=== PATIENT | male | born 1955 | race Caucasian/White ===

== ENCOUNTER 2017-01-12 06:20 | Day surgery (SDC) | payer BC ==
[2017-01-12] MEDS ORDERED: Lactated Ringers 1,000 ML IV SCH (07:00)
[2017-01-12] MEDS ORDERED: Bupivacaine 0.25%/EPINEPHrine 1:200,000 10 ML SDV INJECT ONE (07:00)
--- NOTE | 2017-01-12 07:01 | PCM.PREANE ---
Preanesthetic Assessment - Anesthesia/Transfusion/Family Hx Anesthesia History: Prior Anesthesia Without Reaction Family History of Anesthesia Reaction: No Transfusion History: No Prior Transfusion(s) Intubation History: Unknown - Review of Systems General: No Symptoms Pulmonary: No Symptoms Cardiovascular: No Symptoms Gastrointestinal: No Symptoms Neurological: No Symptoms Other: Reports: None - Physical Assessment O2 Sat by Pulse Oximetry: 95 Respiratory Rate: 16 Vital Signs: Last Vital Signs Temp 36.1 C 01/12/17 06:27 Pulse 66 01/12/17 06:27 Resp 16 01/12/17 06:27 BP 115/65 01/12/17 06:27 Pulse Ox 95 01/12/17 06:27 Height: 1.91 m Weight: 111.13 kg ASA Class: 3 Mental Status: Alert & Oriented x3 Airway Class: Mallampati = 2 Dentition: Reports: Normal Dentition Thyro-Mental Finger Breadths: 3 Mouth Opening Finger Breadths: 3 ROM/Head Extension: Full Lungs: Clear to Auscultation, Normal Respiratory Effort Cardiovascular: Regular Rate, Regular Rhythm - Allergies Allergies/Adverse Reactions: Allergies Allergy/AdvReac Type Severity Reaction Status Date / Time meperidine HCl [From Demerol] Allergy Anaphylactic Verified 07/13/15 15:03 Shock - Blood Blood Available: No - Anesthesia Plan Pre-Op Medication Ordered: None - Acknowledgements Anesthesia Type Planned: MAC Pt an Appropriate Candidate for the Planned Anesthesia: Yes Alternatives and Risks of Anesthesia Discussed w Pt/Guardian: Yes Pt/Guardian Understands and Agrees with Anesthesia Plan: Yes PreAnesthesia Questionnaire HEENT History: Reports: None Cardiovascular History: Reports: High Cholesterol, Hypertension Respiratory History: Reports: Sleep Apnea Other Respiratory History: uses CPAP Gastrointestinal History: Reports: Colon Polyp, GERD, Other (See Below) Other Gastrointestinal History: hx of Barretts Esophagus, h/o colon polyps, h/o gstric ulcer Genitourinary History: Reports: BPH Musculoskeletal History: Reports: Back Pain, Chronic, Fracture, Gout Other Musculoskeletal History: degenerative discs in neck and back, fx of big toe right foot Neurological History: Reports: None Psychiatric History: Reports: None Endocrine/Metabolic History: Reports: Diabetes, Type II, Obesity/BMI 30+ Hematologic History: Reports: None Immunologic History: Reports: None Oncologic (Cancer) History: Reports: None Dermatologic History: Reports: Psoriasis Other Dermatologic History: on nuckles of thumbs - Past Surgical History Head Surgeries/Procedures: Reports: None HEENT Surgical History: Reports: LASIK, Naso-Sinus Surgery Other HEENT Surgeries/Procedures: Frontal sinus surgery Cardiovascular Surgical History: Reports: None Respiratory Surgical History: Reports: None GI Surgical History: Reports: Appendectomy, Colonoscopy, EGD, Other (See Below) Other GI Surgeries/Procedures: umbilical hernia repair Male Surgical History: Reports: None Endocrine Surgical History: Reports: None Neurological Surgical History: Reports: None Musculoskeletal Surgical History: Reports: None Oncologic Surgical History: Reports: None Dermatological Surgical History: Reports: None - SUBSTANCE USE Smoking Status *Q: Former Smoker Recreational Drug Use History: No - HOME MEDS Home Medications: Home Meds Allopurinol [Zyloprim] 1 tab PO DAILY 07/14/15 [History] Aspirin [Adult Low Dose Aspirin EC] 1 tab PO DAILY 07/14/15 [History] Empagliflozin [Jardiance] 25 mg PO DAILY 07/14/15 [History] Finasteride 1 tab PO DAILY 07/14/15 [History] Gabapentin [Neurontin] 1 cap PO BID 07/14/15 [History] Losartan Potassium 1 tab PO DAILY 07/14/15 [History] Omeprazole 1 cap PO BID 07/14/15 [History] Testosterone Cypionate [Depo-Testosterone] 1 ml INJECT ASDIRECTED 07/14/15 [ History] Ubidecarenone [Co Q-10] 1 cap PO DAILY 07/14/15 [History] atorvaSTATin Calcium [Atorvastatin Calcium] 1 tab PO BEDTIME 07/14/15 [History] sitaGLIPtin Phos/Metformin HCl [Janumet 50-500 MG] 1 tab PO BID 07/14/15 [ History] Acetaminophen [Tylenol Extra Strength] 2 tab PO ASDIRECTED PRN 01/10/17 [History ] Acyclovir 400 mg PO BID 01/10/17 [History] Dulaglutide [Trulicity] 1 injection SUBCUT ASDIRECTED 01/10/17 [History] Fish Oil/DHA/EPA [Fish Oil 1,200 MG] 1,200 mg PO BID 01/10/17 [History] Ibuprofen 1 tab PO ASDIRECTED PRN 01/10/17 [History] Loteprednol Etabonate [Lotemax] 1 drop EYEBOTH BID 01/10/17 [History] Metoclopramide HCl 1 tab PO QID 01/10/17 [History] Multivitamin [Multivitamins] 1 tab PO DAILY 01/10/17 [History] - CURRENT (IN HOUSE) MEDS Current Meds: Current Medications Hydrocodone Bitart/Acetaminophen ([place] 325-5 Mg) 1 tab PO Q4H PRN PRN Reason: Pain Bupivacaine HCl/Epinephrine Bitart (Marcaine 0.25%/Epinephrine 1:200,000) 20 ml INJECT ONETIME ONE Stop: 01/12/17 07:01 Cefazolin Sodium/Dextrose 2 gm (/ Premix) 50 mls @ 100 mls/hr IV ONETIME ONE Stop: 01/12/17 07:59 Lactated Ringer's (Ringers, Lactated) 1,000 mls @ 125 mls/hr IV ASDIRECTED [facility] Last Admin: 01/12/17 06:32 Dose: 125 mls/hr
[2017-01-12] MEDS ORDERED: Bupivacaine 25%/EPINEPHrine/PF 30 ML ONE (07:19)
[2017-01-12] MEDS ORDERED: Ondansetron 4 MG/2 ML SDV ONE (07:21)
[2017-01-12] MEDS ORDERED: fentaNYL 100 MCG/2 ML SDV ONE ×2 (07:21→07:59)
[2017-01-12] MEDS ORDERED: Midazolam 1 MG/ML 2 ML SDV ONE (07:21)
[2017-01-12] MEDS ORDERED: Propofol 200 MG/20 ML SDV ONE (07:21)
[2017-01-12] MEDS ORDERED: Acetaminophen/HYDROcodone 325-5 MG Tab PO PRN (07:30)
[2017-01-12] MEDS ORDERED: ceFAZolin 2 GM in Premix Bag 1 BAG IV ONE (07:30)
[2017-01-12] MEDS ORDERED: ePHEDrine 50 MG/ML SDV ONE (08:01)
[2017-01-12] MEDS ORDERED: Ketorolac 30 MG/ML SDV ONE (08:14)
[2017-01-12] MEDS ORDERED: fentaNYL 100 MCG/2 ML SDV IVPUSH PRN (08:17)
[2017-01-12 09:22] VITALS: BP 123/74
--- NOTE | 2017-01-12 12:24 | PCM.OPNOTE ---
- General Post-Op/Procedure Note Date of Surgery/Procedure: 01/12/17 Operative Procedure(s): left carpal and cubital tunnel releases Pre Op Diagnosis: left carpal tunnel and cubital tunnel syndrome Anesthesia Technique: General LMA, Local Primary Surgeon: Rachel Parish Masking Machine Operator: Concepcion Cartwright Complications: None Condition: Good Free Text/Narrative:: Intake & Output 01/11/17 01/12/17 01/12/17 23:59 07:59 15:59 Intake Total 1650 Balance 1650 [id number]
--- NOTE | 2017-01-12 18:26 | OR ---
SURGEON: MILLER HEWITT MD DATE OF PROCEDURE: 01/12/2017 PREOPERATIVE DIAGNOSES: Left cubital tunnel and left carpal tunnel syndrome. POSTOPERATIVE DIAGNOSES: Left cubital tunnel and left carpal tunnel syndrome. PROCEDURES: Left cubital tunnel release and left carpal tunnel release. WINE STEWARD: IDRIS Foote. ANESTHESIA: General LMA with local. INDICATIONS: The patient is seen today in evaluation for left cubital and carpal tunnel syndrome. Risks and benefits of release were discussed with him and he was in agreement to proceed. Risks were including, but not limited to, bleeding, infection, damage to underlying or overlying structures, possible need for future interventions, and possible scarring. PROCEDURE IN DETAIL: After informed consent was obtained and placed on the chart, the patient was brought to the operating theater and laid in supine position. After adequate general LMA and local anesthesia was obtained, the area was prepped and draped. A time-out was completed to confirm side and site. Once adequately confirmed, attention was then paid to dissection of the transverse carpal ligament. The arm was exsanguinated and the tourniquet was inflated to 200 mmHg. Once adequately done, attention was then paid to time-out to confirm side and site. Once this was completed, dissection over the transverse carpal ligament was completed using a #15 blade and Luis Enrique retractors. Under direct visualization, the ligament was reached and dissection was carried distally and proximally under direct visualization for complete release of ligament. Once adequately released, wound was irrigated and closed using 5-0 and 4-0 nylon stitches in a horizontal mattress fashion. The wound was dressed with Xeroform fluffs and a Kerlix gauze dressing, and a 2 inch Kishan wrap. Attention was then paid to the cubital area and the incision was made over the ulnar aspect of the arm. Dissection was carried through the skin and subcutaneous tissues first using a #15 blade and then scissor dissection through the subcutaneous tissues. The nerve was directly visualized at its portion just prior to entering the cubital tunnel. Once this was localized, dissection was carried proximally up into the upper arm and the brachial fascia was released. Any tethering structures were freed taking care for meticulous hemostasis. The nerve was appreciated to be freed by placing my small finger into the tunnel. There was no tension or tethering structures. Attention was then paid to distal dissection and this was done under direct visualization until free mobility of the nerve was appreciated. Dissection was carried through the cubital tunnel and then distally through the flexor carpi ulnaris two heads. Once this was completed, the tourniquet was desufflated and meticulous hemostasis was obtained. Once adequate hemostasis, the area was copiously irrigated and closed using deep 3-0 Monocryl stitches and a running 4- 0 subcuticular for the skin. Once completed, attention was then paid to Steri- Strips for dressings, fluffs, Kerlix, and 4-inch Kishan wrap. He tolerated this well. All counts and needles were correct at the end of the case. FOLLOWUP INSTRUCTIONS: The patient will see us in 10 to 14 days or sooner if any problems, questions, or concerns. He was given a prescription for pain control. SHAHEED / JUAN /[id number]
== END 2017-01-12 10:10 | disposition home or self-care (01) ==
LOC: MW.SDS 06:20
PROVIDERS: ATTEND Plastic Surgery
DX: G56.02 Carpal tunnel syndrome, left upper limb (principal); G56.22 Lesion of ulnar nerve, left upper limb; I10 Essential (primary) hypertension; E78.00 Pure hypercholesterolemia, unspecified; G47.30 Sleep apnea, unspecified; K21.9 Gastro-esophageal reflux disease without esophagitis; E11.9 Type 2 diabetes mellitus without complications; E66.9 Obesity, unspecified; N40.0 Benign prostatic hyperplasia without lower urinary tract symptoms; Z98.890 Other specified postprocedural states; Z88.8 Allergy status to other drugs, medicaments and biological substances; Z90.49 Acquired absence of other specified parts of digestive tract; Z87.891 Personal history of nicotine dependence; Z79.82 Long term (current) use of aspirin; Z79.899 Other long term (current) drug therapy; Z68.30 Body mass index [BMI] 30.0-30.9, adult
CPT/HCPCS: 64718; 64721; J1885; J2250; J2405; J3010; J7120; 01810; J2704

== ENCOUNTER 2020-05-07 09:56 | Inpatient (IN) | payer BC, OTHER ==
--- NOTE | 2020-05-07 10:03 | EDM.PDOC ---
ED HPI GENERAL MEDICAL PROBLEM - General Chief Complaint: Respiratory Problem Stated Complaint: COVID, DIFFICULTY BREATHING, COUGH Time Seen by Provider: 05/07/20 09:58 Source of Information: Reports: Patient History Limitations: Reports: No Limitations - History of Present Illness INITIAL COMMENTS - FREE TEXT/NARRATIVE: HISTORY AND PHYSICAL: History of present illness: Patient is a 64-year-old male who presents to the emergency room with complaints of cough and shortness of breath. Patient states he tested positive for COVID- 19 on 05/01/20, was diagnosed at [facility]. After his diagnoses he was prescribed Augmentin. He continued to feel unwell and his primary care provider at [facility] called him in a 10 day course of 500mg Azithromycin and 6mg BID of Decadron. He states he continues to feel very short of breath and is concerned his oxygen saturation is low. Patient denies any fever, chills, headache, change in vision, syncope or near syncope. Denies any chest pain, back pain, or hemoptysis. Denies any abdominal pain, nausea, vomiting, diarrhea, constipation or dysuria. Has not noted any blood in urine or stool. Patient has been eating and drinking appropriately. Review of systems: As per history of present illness and below otherwise all systems reviewed and negative. Past medical history: As per history of present illness and as reviewed below otherwise noncontributory. Surgical history: As per history of present illness and as reviewed below otherwise noncontributory. Social history: See social history for further information Family history: As per history of present illness and as reviewed below otherwise noncontributory. Physical exam: General: Well developed and well nourished 64 year old female. Alert and orientated x 3. Nontoxic in appearance and in no acute distress. Vital signs are stable and have been reviewed by me. Nursing notes were reviewed. HEENT: Atraumatic, normocephalic, pupils equal and reactive bilaterally, negative for conjunctival pallor or scleral icterus, mucous membranes moist, neck supple, nontender, trachea midline. No drooling or trismus noted. No meningeal signs. No hot potato voice noted. Lungs: Diminished to auscultation bilaterally. No wheezes, rales, or rhonchi. Chest nontender. Normal work of breathing, no accessory muscles used. Heart: S1S2, regular rate and rhythm without overt murmur, gallops, or rubs. No JVD. No peripheral edema Abdomen: Soft, nondistended, nontender. Normoactive bowel sounds. Negative for masses or costovertebral tenderness. Pelvis: Stable nontender. Genitourinary/Rectal: Deferred. Skin: Intact, warm, dry. No lesions or rashes noted. Hematologic: No petechiae or purpra. Mucosa appropriate color and normal nail bed color and refill. Extremities: Atraumatic, moves all extremities per self without difficulty or deficits, negative for cords or calf pain. Neurovascular unremarkable. Neuro: Awake, alert, oriented. Cranial nerves II through XII unremarkable. Cerebellum unremarkable. Motor and sensory unremarkable throughout. Exam nonfocal. Psychiatric: Mood and affect are appropriate. Normal thought process. Answering questions appropriately. Notes: *This patient was seen and evaluated during the 2019 SARS-CoV-2 novel coronavirus pandemic period. Community viral transmission is ongoing at time of this encounter and the emergency department is operating under pandemic response procedures. I have talked with the patient about today's findings, in addition to providing specific details for plan of care. Patient's chest x-ray shows bilateral lung infiltrates related to COVID-19 pneumonia. EKG shows a sinus rhythm with a rate of 81. Vital signs remained stable although he has been on 2 L per nasal cannula satting 92 to 94%. Patient will be admitted for further care and treatment. Dr. Alarcon was consulted on this case and is agreeable. I did review the remdesivir patient information sheet, he is agreeable. Diagnostics: CBC, CMP, COVID-19, Troponin, EKG, CXR Therapeutics: Remdesivr 200mg Impression: COVID-19 positive test (U07.1, COVID-19) with Acute Pneumonia (J12.89, Other viral pneumonia) (If respiratory failure or sepsis present, add as separate assessment) Plan: Inpatient admission to [facility] Definitive disposition and diagnosis as appropriate pending reevaluation and review of above. - Related Data Allergies Allergy/AdvReac Type Severity Reaction Status Date / Time meperidine HCl [From Demerol] Allergy Anaphylactic Verified 05/07/20 09:59 Shock Home Meds: Home Meds Allopurinol [Zyloprim] 1 tab PO DAILY 07/14/15 [History] Aspirin [Adult Low Dose Aspirin EC] 1 tab PO DAILY 07/14/15 [History] Empagliflozin [Jardiance] 25 mg PO DAILY 07/14/15 [History] Finasteride 1 tab PO DAILY 07/14/15 [History] Gabapentin [Neurontin] 1 cap PO BID 07/14/15 [History] Losartan Potassium 1 tab PO DAILY 07/14/15 [History] Omeprazole 1 cap PO BID 07/14/15 [History] Testosterone Cypionate [Depo-Testosterone] 1 ml INJECT ASDIRECTED 07/14/15 [History] Ubidecarenone [Co Q-10] 1 cap PO DAILY 07/14/15 [History] atorvaSTATin Calcium [Atorvastatin Calcium] 1 tab PO BEDTIME 07/14/15 [History] sitaGLIPtin Phos/Metformin HCl [Janumet 50-500 MG] 1 tab PO BID 07/14/15 [History] Acetaminophen [Tylenol Extra Strength] 2 tab PO ASDIRECTED PRN 01/10/17 [History] Acyclovir 400 mg PO BID 01/10/17 [History] Dulaglutide [Trulicity] 1 injection SUBCUT ASDIRECTED 01/10/17 [History] Fish Oil/DHA/EPA [Fish Oil 1,200 MG] 1,200 mg PO BID 01/10/17 [History] Ibuprofen 1 tab PO ASDIRECTED PRN 01/10/17 [History] Loteprednol Etabonate [Lotemax] 1 drop EYEBOTH BID 01/10/17 [History] Metoclopramide HCl 1 tab PO QID 01/10/17 [History] Multivitamin [Multivitamins] 1 tab PO DAILY 01/10/17 [History] Acetaminophen/HYDROcodone [[place] 325-5 MG] 1 tab PO Q4H PRN #740 tablet 01/12/17 [Rx] Past Medical History HEENT History: Reports: None Cardiovascular History: Reports: High Cholesterol, Hypertension Respiratory History: Reports: Sleep Apnea Other Respiratory History: uses CPAP Gastrointestinal History: Reports: Colon Polyp, GERD, Other (See Below) Other Gastrointestinal History: hx of Barretts Esophagus, h/o colon polyps, h/o gstric ulcer Genitourinary History: Reports: BPH Musculoskeletal History: Reports: Back Pain, Chronic, Fracture, Gout, Neck Pain, Chronic Other Musculoskeletal History: degenerative discs in neck and back, fx of big toe right foot Neurological History: Reports: None Psychiatric History: Reports: None Endocrine/Metabolic History: Reports: Diabetes, Type II, Obesity/BMI 30+ Hematologic History: Reports: None Immunologic History: Reports: None Oncologic (Cancer) History: Reports: None Dermatologic History: Reports: Psoriasis Other Dermatologic History: on nuckles of thumbs - Past Surgical History Head Surgeries/Procedures: Reports: None HEENT Surgical History: Reports: LASIK, Naso-Sinus Surgery Other HEENT Surgeries/Procedures: Frontal sinus surgery Cardiovascular Surgical History: Reports: None Respiratory Surgical History: Reports: None GI Surgical History: Reports: Appendectomy, Colonoscopy, EGD, Other (See Below) Other GI Surgeries/Procedures: umbilical hernia repair Male Surgical History: Reports: None Endocrine Surgical History: Reports: None Neurological Surgical History: Reports: None Musculoskeletal Surgical History: Reports: None Oncologic Surgical History: Reports: None Dermatological Surgical History: Reports: None ED ROS GENERAL - Review of Systems Review Of Systems: Comprehensive ROS is negative, except as noted in HPI. ED EXAM, GENERAL - Physical Exam Exam: See Below (See dictation) Course - Vital Signs Last Recorded V/S: Last Vital Signs Temp 99.0 F 05/07/20 09:59 Pulse 99 05/07/20 11:23 Resp 18 05/07/20 11:23 BP 115/81 05/07/20 11:23 Pulse Ox 96 05/07/20 11:23 - Orders/Labs/Meds Orders: Active Orders 24 hr Category Date Time Status Admission Status [Patient Status] [ADT] Stat ADT 05/07/20 11:36 Ordered EKG Documentation Completion [RC] STAT Care 05/07/20 10:13 Active Oxygen Therapy [RC] ASDIRECTED Care 05/07/20 10:13 Active BILIRUBIN DIRECT [CHEM] Stat Lab 05/07/20 11:32 Ordered Sodium Chloride 0.9% [Saline Flush] Med 05/07/20 10:13 Active 10 ml FLUSH ASDIRECTED PRN Sodium Chloride 0.9% [Saline Flush] Med 05/07/20 10:13 Active 2.5 ml FLUSH ASDIRECTED PRN Saline Lock Insert [OM.PC] Stat Oth 05/07/20 10:13 Ordered Medication Orders Sodium Chloride (Saline Flush) 10 ml FLUSH ASDIRECTED PRN PRN Reason: Keep Vein Open Last Admin: 05/07/20 11:21 Dose: 10 ml Documented by: WILLIAM Sodium Chloride (Saline Flush) 2.5 ml FLUSH ASDIRECTED PRN PRN Reason: Keep Vein Open Last Admin: 05/07/20 11:21 Dose: 2.5 ml Documented by: WILLIAM Labs: Laboratory Tests 05/07/20 05/07/20 05/07/20 Range/Units 10:23 10:23 10:34 WBC 10.45 (4.0-11.0) K/uL RBC 5.59 (4.50-5.90) M/uL Hgb 15.2 (13.0-17.0) g/dL Hct 45.8 (38.0-50.0) % MCV 81.9 (80.0-98.0) fL MCH 27.2 (27.0-32.0) pg MCHC 33.2 (31.0-37.0) g/dL RDW Std Deviation 50.7 (28.0-62.0) fl RDW Coeff of Sayra 17 H (11.0-15.0) % Plt Count 188 (150-400) K/uL MPV 9.30 (7.40-12.00) fL Neut % (Auto) 88.4 H (48.0-80.0) % Lymph % (Auto) 6.0 L (16.0-40.0) % Elliott % (Auto) 5.6 (0.0-15.0) % Eos % (Auto) 0.0 (0.0-7.0) % Baso % (Auto) 0.0 (0.0-1.5) % Neut # (Auto) 9.2 H (1.4-5.7) K/uL Lymph # (Auto) 0.6 (0.6-2.4) K/uL Elliott # (Auto) 0.6 (0.0-0.8) K/uL Eos # (Auto) 0.0 (0.0-0.7) K/uL Baso # (Auto) 0.0 (0.0-0.1) K/uL Nucleated RBC % 0.0 /100WBC Nucleated RBCs # 0 K/uL Sodium 139 (136-148) mmol/L Potassium 4.1 (3.5-5.1) mmol/L Chloride 102 (98-107) mmol/L Carbon Dioxide 23.2 (21.0-32.0) mmol/L BUN 26 H (7.0-18.0) mg/dL Creatinine 1.3 (0.8-1.3) mg/dL Est Cr Clr Drug Dosing 70.42 mL/min Estimated GFR (MDRD) 55.9 ml/min Glucose 276 H (74-106) mg/dL Calcium 8.9 (8.5-10.1) mg/dL Total Bilirubin 0.4 (0.2-1.0) mg/dL AST 20 (15-37) IU/L ALT 26 (14-63) IU/L Alkaline Phosphatase 70 (46-116) U/L Troponin I < 0.050 (0.000-0.056) ng/mL Total Protein 8.2 (6.4-8.2) g/dL Albumin 3.5 (3.4-5.0) g/dL Globulin 4.7 H (2.6-4.0) g/dL Albumin/Globulin Ratio 0.7 L (0.9-1.6) SARS-CoV-2 RNA (ARNAUD) POSITIVE H (NEGATIVE) Meds: Medications Generic Name Dose Route Start Last Admin Trade Name Freq PRN Reason Stop Dose Admin Sodium Chloride 10 ml 05/07/20 10:13 05/07/20 11:21 Saline Flush FLUSH 10 ml ASDIRECTED PRN Administration Keep Vein Open Sodium Chloride 2.5 ml 05/07/20 10:13 05/07/20 11:21 Saline Flush FLUSH 2.5 ml ASDIRECTED PRN Administration Keep Vein Open Discontinued Medications Generic Name Dose Route Start Last Admin Trade Name Freq PRN Reason Stop Dose Admin Remdesivir 200 mg/ Sodium 250 mls @ 250 mls/hr 05/07/20 11:31 Chloride IV 05/07/20 11:32 ONETIME ONE Departure - Departure Time of Disposition: 11:40 Disposition: Admitted As Inpatient 68 Clinical Impression: Viral pneumonia, COVID-19 - Discharge Information Referrals: Eren Tong MD [Primary Care Provider] - Forms: ED Department Discharge Sepsis Event Note (ED) - Focused Exam Vital Signs: Vital Signs Temp Pulse Resp BP Pulse Ox 05/07/20 11:23 99 18 115/81 96 05/07/20 10:21 92 L 05/07/20 10:20 90 L 05/07/20 09:59 99.0 F 91 18 176/95 H 92 L - My Orders Last 24 Hours: My Active Orders 05/07/20 10:13 EKG Documentation Completion [RC] STAT Oxygen Therapy [RC] ASDIRECTED Sodium Chloride 0.9% [Saline Flush] 10 ml FLUSH ASDIRECTED PRN Sodium Chloride 0.9% [Saline Flush] 2.5 ml FLUSH ASDIRECTED PRN Saline Lock Insert [OM.PC] Stat 05/07/20 11:32 BILIRUBIN DIRECT [CHEM] Stat 05/07/20 11:36 Admission Status [Patient Status] [ADT] Stat - Assessment/Plan Last 24 Hours: My Active Orders 05/07/20 10:13 EKG Documentation Completion [RC] STAT Oxygen Therapy [RC] ASDIRECTED Sodium Chloride 0.9% [Saline Flush] 10 ml FLUSH ASDIRECTED PRN Sodium Chloride 0.9% [Saline Flush] 2.5 ml FLUSH ASDIRECTED PRN Saline Lock Insert [OM.PC] Stat 05/07/20 11:32 BILIRUBIN DIRECT [CHEM] Stat 05/07/20 11:36 Admission Status [Patient Status] [ADT] Stat
[2020-05-07] MEDS ORDERED: Sodium Chloride 0.9% 10 ML Syringe FLUSH PRN (10:13)
[2020-05-07] MEDS ORDERED: Sodium Chloride 0.9% 2.5 ML Syringe FLUSH PRN ×2 (10:13→12:30)
--- NOTE | 2020-05-07 10:45 | PCM.SN.2 ---
- Free Text/Narrative Note: Heart rate = 81 bpm, normal sinus rhythm, normal QRS interval, no STEMI. EKG and rhythm strip interpreted by me at 1037
[2020-05-07 11:04] LABS: BLOOD UREA NITROGEN,BUN 26 mg/dL (7.0-18.0); CARBON DIOXIDE,CO2 23.2 mmol/L (21.0-32.0); CHLORIDE,CL 102 mmol/L (98-107); GLUCOSE RANDOM 276 mg/dL (74-106); POTASSIUM,K 4.1 mmol/L (3.5-5.1); SODIUM,NA 139 mmol/L (136-148)
--- NOTE | 2020-05-07 11:09 | CR ---
HISTORY: Shortness of breath. COVID positive. TECHNIQUE: One view of the chest. COMPARISON: No prior. FINDINGS: There are bilateral lung infiltrates which may relate to COVID-19 pneumonia. There is no pneumothorax or pleural effusion. Cardiac size is within normal limits accounting for the AP portable technique. IMPRESSION: Bilateral lung infiltrates which may relate to COVID-19 pneumonia. Dictated by Chris Gregory MD @ 05/07/2020 11:08:18 AM Dictated by: Chris Gregory MD @ 05/07/2020 11:08:22 (Electronically Signed)
[2020-05-07] MEDS ORDERED: REMDESIVIR 200 MG in Sodium Chloride 0.9% 250 ML IV ONE ×2 (11:31→12:00)
[2020-05-07] MEDS ORDERED: Docusate Sodium 100 MG Cap PO PRN (12:30)
[2020-05-07] MEDS ORDERED: Ondansetron 4 MG/2 ML SDV IVPUSH PRN (12:30)
[2020-05-07] MEDS ORDERED: Pantoprazole 40 MG Vial IV SCH (12:30)
[2020-05-07] MEDS ORDERED: Glucagon,Human Recombinant 1 MG Vial IM PRN (12:36)
[2020-05-07] MEDS ORDERED: 50% Dextrose in Water 50 ML Syringe IV PRN (12:36)
[2020-05-07] MEDS ORDERED: Pantoprazole 40 MG in Sodium Chloride 0.9% 10 ML IV SCH (13:00)
--- NOTE | 2020-05-07 14:30 | PCM.HP.2 ---
H&P History of Present Illness - General Date of Service: 05/07/20 Admit Problem/Dx: Admission Diagnosis/Problem Admission Diagnosis/Problem Pneumonia Source of Information: Patient History Limitations: Reports: No Limitations - History of Present Illness Initial Comments - Free Text/Narative: This 64 year old male with pmh of HTN, HLD, DM Type 2, TON on CPAP, GERD with Barretts presented to the ED today with complaints of cough and shortness of breath. He was diagnosed with COVID on 05/01/2020 of a outside clinic in [facility]. He was given Augmentin. He continued to feel poorly and discussed this with PCP Dr Tong, who sent Azithromycin and Dexamethasone. He has continued to have sob and was concerned his oxygen levels were low. He reports he initially started having symptoms 1-1/2 weeks ago and was then tested on 05/01/2020. Beginning the week is when he received the dexamethasone and azithromycin. He reports he has had fevers highest 101 F. He denies any sinus congestion or sore throat. Reports that taste and smell are slightly affected. He reports significant cough inability to take a deep breath. He is not coughing anything up no hemoptysis and no sputum. He denies any chest pain but does report pleuritic chest pain with significant coughing. Denies any abdominal pain. Does report mild diarrhea but he feels this is likely related to Augmentin he was taking. He reports he is eating and drinking well but also states that he has lost approximately 10 pounds in the course of him being sick. He denies any focal neurological deficits. He denies tobacco use(quit in 1994) no alcohol use and no recreational drug use. In the ED no leukocytosis was noted, platelet 188,000, BUN 26 Cr 1.3. Glucose 276. Troponin negative. CXR revealed bilateral lung infiltrate, typical for COVID pneumonia. EKG SR with HR 80s no ST or T wave changes. He was noted to be hypoxic on RA at 88%. He was placed on 2 L NC and was satting at 92-94%. He was treated with Remdesivir 200 mg IV in ED. He will be admitted inpatient for acute hypoxic respiratory failure and COVID 19 pneumonia. PCP, Dr Tong - Related Data Allergies/Adverse Reactions: Allergies Allergy/AdvReac Type Severity Reaction Status Date / Time meperidine HCl [From Demerol] Allergy Anaphylactic Verified 05/07/20 14:03 Shock Home Medications: Home Meds Allopurinol [Zyloprim] 300 mg PO DAILY 07/14/15 [History] Aspirin [Adult Low Dose Aspirin EC] 1 tab PO DAILY 07/14/15 [History] Empagliflozin [Jardiance] 25 mg PO DAILY 07/14/15 [History] Finasteride 5 mg PO DAILY 07/14/15 [History] Gabapentin [Neurontin] 300 mg PO TID PRN 07/14/15 [History] Losartan Potassium 1 tab PO DAILY 07/14/15 [History] Omeprazole 20 mg PO ACBREAKFASTANDBED 07/14/15 [History] Testosterone Cypionate [Depo-Testosterone] 1 ml IM WEEKLY 07/14/15 [History] Ubidecarenone [Co Q-10] 1 cap PO DAILY 07/14/15 [History] atorvaSTATin Calcium [Atorvastatin Calcium] 1 tab PO BEDTIME 07/14/15 [History] Acetaminophen [Tylenol Extra Strength] 2 tab PO ASDIRECTED PRN 01/10/17 [History] Acyclovir 400 mg PO BID 01/10/17 [History] Dulaglutide [Trulicity] 1.5 mg SUBCUT WEEKLY 01/10/17 [History] Fish Oil/DHA/EPA [Fish Oil 1,200 MG] 1,200 mg PO BID 01/10/17 [History] Ibuprofen 1 tab PO ASDIRECTED PRN 01/10/17 [History] Loteprednol Etabonate [Lotemax] 1 drop EYEBOTH BID 01/10/17 [History] Metoclopramide HCl 1 tab PO QID 01/10/17 [History] Multivitamin [Multivitamins] 1 tab PO DAILY 01/10/17 [History] Acetaminophen/HYDROcodone [[place] 325-5 MG] 1 tab PO Q4H PRN #740 tablet 01/12/17 [Rx] Albuterol Sulfate [Albuterol Sulfate Hfa] 2 puff INH Q4H PRN 05/07/20 [History] Cholecalciferol (Vitamin D3) [Vitamin D3] 1,000 unit PO TID 05/07/20 [History] Fluticasone/Umeclidin/Vilanter [Trelegy Ellipta 100-62.5-25 MCG] 1 puff INH DAILY 05/07/20 [History] Montelukast [Singulair] 10 mg PO QPM 05/07/20 [History] Psyllium Seed (With Sugar) [Metamucil Fiber Wafer] 2 each PO DAILY 05/07/20 [History] Vitamin E 800 unit PO DAILY 05/07/20 [History] sitaGLIPtin Phos/Metformin HCl [Janumet 50-1,000 MG] 1 each PO BID 05/07/20 [History] Past Medical History HEENT History: Reports: None Cardiovascular History: Reports: High Cholesterol, Hypertension. Denies: Afib, Blood Clots/VTE/DVT, CAD Respiratory History: Reports: COPD, Sleep Apnea Other Respiratory History: uses CPAP Gastrointestinal History: Reports: Colon Polyp, GERD, Other (See Below) Other Gastrointestinal History: hx of Barretts Esophagus, h/o colon polyps, h/o gstric ulcer Genitourinary History: Reports: BPH Musculoskeletal History: Reports: Back Pain, Chronic, Fracture, Gout, Neck Pain, Chronic Other Musculoskeletal History: degenerative discs in neck and back, fx of big toe right foot Neurological History: Reports: None Psychiatric History: Reports: None Endocrine/Metabolic History: Reports: Diabetes, Type II, Obesity/BMI 30+ Hematologic History: Reports: None Immunologic History: Reports: None Oncologic (Cancer) History: Reports: None Dermatologic History: Reports: Psoriasis Other Dermatologic History: on nuckles of thumbs - Infectious Disease History Infectious Disease History: Reports: Chicken Pox - Past Surgical History Head Surgeries/Procedures: Reports: None HEENT Surgical History: Reports: LASIK, Naso-Sinus Surgery Other HEENT Surgeries/Procedures: Frontal sinus surgery Cardiovascular Surgical History: Reports: None Respiratory Surgical History: Reports: None GI Surgical History: Reports: Appendectomy, Colonoscopy, EGD, Other (See Below) Other GI Surgeries/Procedures: umbilical hernia repair Male Surgical History: Reports: None Endocrine Surgical History: Reports: None Neurological Surgical History: Reports: None Musculoskeletal Surgical History: Reports: None, Carpal Tunnel Oncologic Surgical History: Reports: None Dermatological Surgical History: Reports: None Social & Family History - Family History Family Medical History: No Pertinent Family History - Tobacco Use Tobacco Use Status *Q: Former Tobacco User Used Tobacco, but Quit: Yes Month/Year Tobacco Last Used: 1994 - Caffeine Use Caffeine Use: Reports: Coffee - Alcohol Use Alcohol Use History: No - Recreational Drug Use Recreational Drug Use: No H&P Review of Systems - Review of Systems: Review Of Systems: See Below General: Reports: Fever, Chills, Malaise, Fatigue HEENT: Reports: Post Nasal Drip. Denies: Headaches, Sinus Congestion, Sore Throat Pulmonary: Reports: Shortness of Breath, Pleuritic Chest Pain, Cough. Denies: Sputum, Hemoptysis Cardiovascular: Reports: Dyspnea on Exertion. Denies: Chest Pain, Edema, Lightheadedness Gastrointestinal: Reports: Diarrhea. Denies: Abdominal Pain, Black Stool, Bloody Stool, Nausea, Vomiting Genitourinary: Reports: No Symptoms, Pain, Urgency. Denies: Dysuria, Frequency Musculoskeletal: Reports: No Symptoms Psychiatric: Reports: No Symptoms Neurological: Reports: No Symptoms Hematologic/Lymphatic: Reports: No Symptoms Immunologic: Reports: No Symptoms Exam - Exam Exam: See Below - Vital Signs Vital Signs: Last Vital Signs Temp 97.4 F 05/07/20 13:30 Pulse 79 05/07/20 13:30 Resp 20 05/07/20 13:30 BP 138/70 05/07/20 13:30 Pulse Ox 92 L 05/07/20 13:30 Weight: 99.79 kg - Exam General: Alert, Oriented, Cooperative HEENT: Conjunctiva Clear Neck: Supple Lungs: Decreased Breath Sounds, Crackles (R basilar) Cardiovascular: Regular Rate, Regular Rhythm GI/Abdominal Exam: Normal Bowel Sounds, Soft, Non-Tender Extremities: Normal Inspection, Normal Range of Motion, Non-Tender, No Pedal Edema Skin: Warm, Dry Neuro Extensive - Mental Status: Alert, Oriented x3 Neuro Extensive - Motor, Sensory, Reflexes: CN II-XII Intact Psychiatric: Alert, Normal Affect, Normal Mood - Patient Data Lab Results Last 24 hrs: Laboratory Results - last 24 hr 05/07/20 05/07/20 05/07/20 Range/Units 10:23 10:23 10:23 WBC 10.45 (4.0-11.0) K/uL RBC 5.59 (4.50-5.90) M/uL Hgb 15.2 (13.0-17.0) g/dL Hct 45.8 (38.0-50.0) % MCV 81.9 (80.0-98.0) fL MCH 27.2 (27.0-32.0) pg MCHC 33.2 (31.0-37.0) g/dL RDW Std Deviation 50.7 (28.0-62.0) fl RDW Coeff of Sayra 17 H (11.0-15.0) % Plt Count 188 (150-400) K/uL MPV 9.30 (7.40-12.00) fL Neut % (Auto) 88.4 H (48.0-80.0) % Lymph % (Auto) 6.0 L (16.0-40.0) % Gaines % (Auto) 5.6 (0.0-15.0) % Eos % (Auto) 0.0 (0.0-7.0) % Baso % (Auto) 0.0 (0.0-1.5) % Neut # (Auto) 9.2 H (1.4-5.7) K/uL Lymph # (Auto) 0.6 (0.6-2.4) K/uL Gaines # (Auto) 0.6 (0.0-0.8) K/uL Eos # (Auto) 0.0 (0.0-0.7) K/uL Baso # (Auto) 0.0 (0.0-0.1) K/uL Nucleated RBC % 0.0 /100WBC Nucleated RBCs # 0 K/uL Sodium 139 (136-148) mmol/L Potassium 4.1 (3.5-5.1) mmol/L Chloride 102 (98-107) mmol/L Carbon Dioxide 23.2 (21.0-32.0) mmol/L BUN 26 H (7.0-18.0) mg/dL Creatinine 1.3 (0.8-1.3) mg/dL Est Cr Clr Drug Dosing 70.42 mL/min Estimated GFR (MDRD) 55.9 ml/min Glucose 276 H (74-106) mg/dL Calcium 8.9 (8.5-10.1) mg/dL Total Bilirubin 0.4 (0.2-1.0) mg/dL Direct Bilirubin 0.10 (0.0-0.5) mg/dL AST 20 (15-37) IU/L ALT 26 (14-63) IU/L Alkaline Phosphatase 70 (46-116) U/L Troponin I < 0.050 (0.000-0.056) ng/mL Total Protein 8.2 (6.4-8.2) g/dL Albumin 3.5 (3.4-5.0) g/dL Globulin 4.7 H (2.6-4.0) g/dL Albumin/Globulin Ratio 0.7 L (0.9-1.6) SARS-CoV-2 RNA (ARNAUD) (NEGATIVE) 05/07/20 Range/Units 10:34 WBC (4.0-11.0) K/uL RBC (4.50-5.90) M/uL Hgb (13.0-17.0) g/dL Hct (38.0-50.0) % MCV (80.0-98.0) fL MCH (27.0-32.0) pg MCHC (31.0-37.0) g/dL RDW Std Deviation (28.0-62.0) fl RDW Coeff of Sayra (11.0-15.0) % Plt Count (150-400) K/uL MPV (7.40-12.00) fL Neut % (Auto) (48.0-80.0) % Lymph % (Auto) (16.0-40.0) % Gaines % (Auto) (0.0-15.0) % Eos % (Auto) (0.0-7.0) % Baso % (Auto) (0.0-1.5) % Neut # (Auto) (1.4-5.7) K/uL Lymph # (Auto) (0.6-2.4) K/uL Gaines # (Auto) (0.0-0.8) K/uL Eos # (Auto) (0.0-0.7) K/uL Baso # (Auto) (0.0-0.1) K/uL Nucleated RBC % /100WBC Nucleated RBCs # K/uL Sodium (136-148) mmol/L Potassium (3.5-5.1) mmol/L Chloride (98-107) mmol/L Carbon Dioxide (21.0-32.0) mmol/L BUN (7.0-18.0) mg/dL Creatinine (0.8-1.3) mg/dL Est Cr Clr Drug Dosing mL/min Estimated GFR (MDRD) ml/min Glucose (74-106) mg/dL Calcium (8.5-10.1) mg/dL Total Bilirubin (0.2-1.0) mg/dL Direct Bilirubin (0.0-0.5) mg/dL AST (15-37) IU/L ALT (14-63) IU/L Alkaline Phosphatase (46-116) U/L Troponin I (0.000-0.056) ng/mL Total Protein (6.4-8.2) g/dL Albumin (3.4-5.0) g/dL Globulin (2.6-4.0) g/dL Albumin/Globulin Ratio (0.9-1.6) SARS-CoV-2 RNA (ARNAUD) POSITIVE H (NEGATIVE) Result Diagrams: 05/07/20 10:23 05/07/20 10:23 Sepsis Event Note - Evaluation Sepsis Screening Result: No Definite Risk - Focused Exam Vital Signs: Vital Signs Temp Pulse Resp BP BP Pulse Ox Pulse Ox 05/07/20 13:30 97.4 F 79 20 138/70 92 L 92 L 05/07/20 11:23 99 18 115/81 96 05/07/20 10:21 92 L 05/07/20 10:20 90 L 05/07/20 09:59 99.0 F 91 18 176/95 H 92 L - Problem List (1) Acute respiratory failure with hypoxia SNOMED Code(s): 89697629, 534607401 ICD Code: J96.01 - ACUTE RESPIRATORY FAILURE WITH HYPOXIA Status: Acute Current Visit: Yes (2) COVID-19 SNOMED Code(s): 468650474 ICD Code: U07.1 - COVID-19 Status: Acute Current Visit: Yes (3) Viral pneumonia SNOMED Code(s): 68365048 ICD Code: J12.9 - VIRAL PNEUMONIA, UNSPECIFIED Status: Acute Current Visit: Yes (4) DM type 2 (diabetes mellitus, type 2) SNOMED Code(s): 30799036 ICD Code: E11.9 - TYPE 2 DIABETES MELLITUS WITHOUT COMPLICATIONS Status: Chronic Current Visit: Yes Qualifiers: Diabetes mellitus senior living insulin use: without senior living use Diabetes mellitus complication status: without complication Qualified Code(s): E11.9 - Type 2 diabetes mellitus without complications (5) HTN (hypertension) SNOMED Code(s): 97528467 ICD Code: I10 - ESSENTIAL (PRIMARY) HYPERTENSION Status: Chronic Current Visit: Yes Qualifiers: Hypertension type: essential hypertension Qualified Code(s): I10 - Essen tial (primary) hypertension (6) HLD (hyperlipidemia) SNOMED Code(s): 63227954 ICD Code: E78.5 - HYPERLIPIDEMIA, UNSPECIFIED Status: Chronic Current Visit: Yes (7) GERD (gastroesophageal reflux disease) SNOMED Code(s): 375556528 ICD Code: K21.9 - GASTRO-ESOPHAGEAL REFLUX DISEASE WITHOUT ESOPHAGITIS Status: Chronic Current Visit: Yes (8) TON (obstructive sleep apnea) SNOMED Code(s): 88962296 ICD Code: G47.33 - OBSTRUCTIVE SLEEP APNEA (ADULT) (PEDIATRIC) Status: Chronic Current Visit: Yes (9) COPD (chronic obstructive pulmonary disease) SNOMED Code(s): 56630674 ICD Code: J44.9 - CHRONIC OBSTRUCTIVE PULMONARY DISEASE, UNSPECIFIED Status: Chronic Current Visit: Yes Problem List Initiated/Reviewed/Updated: Yes Orders Last 24hrs: Active Orders 24 hr Category Date Time Status Admission Status [Patient Status] [ADT] Stat ADT 05/07/20 11:36 Active Ambulate [RC] ASDIRECTED Care 05/07/20 12:30 Active Blood Glucose Check, Bedside [RC] TIDMEALS Care 05/07/20 12:30 Active Communication Order [RC] ROUTINE Care 05/07/20 14:22 Ordered Intake and Output [RC] Q12H Care 05/07/20 12:30 Active Oxygen Therapy [RC] ASDIRECTED Care 05/07/20 10:13 Active Oxygen Therapy [RC] PRN Care 05/07/20 12:30 Active RT Incentive Spirometry [RC] Q1HWA Care 05/07/20 14:22 Ordered RT Post Treatment Assessment [RC] Click to Edit Care 05/07/20 12:34 Active RT Pre-Treatment Assessment [RC] Click to Edit Care 05/07/20 12:34 Active VTE/DVT Education [RC] PER UNIT ROUTINE Care 05/07/20 12:30 Active Vital Signs [RC] Q4H Care 05/07/20 12:30 Active Respiratory Care Assess and Treatment [CONS] Routine Cons 05/07/20 12:30 Active [employer] Diet [DIET] Diet 05/07/20 Lunch Active Ang Chest [CT] Urgent Exams 05/07/20 14:16 Ordered CBC WITH AUTO DIFF [HEME] AM Lab 05/08/20 05:11 Ordered CBC WITH AUTO DIFF [HEME] AM Lab 05/09/20 05:11 Ordered CBC WITH AUTO DIFF [HEME] AM Lab 05/10/20 05:11 Ordered CBC WITH AUTO DIFF [HEME] AM Lab 05/11/20 05:11 Ordered CBC WITH AUTO DIFF [HEME] AM Lab 05/12/20 05:11 Ordered COMPREHENSIVE METABOLIC PN,CMP [CHEM] AM Lab 05/08/20 05:11 Ordered COMPREHENSIVE METABOLIC PN,CMP [CHEM] AM Lab 05/09/20 05:11 Ordered COMPREHENSIVE METABOLIC PN,CMP [CHEM] AM Lab 05/10/20 05:11 Ordered COMPREHENSIVE METABOLIC PN,CMP [CHEM] AM Lab 05/11/20 05:11 Ordered COMPREHENSIVE METABOLIC PN,CMP [CHEM] AM Lab 05/12/20 05:11 Ordered MAGNESIUM [CHEM] AM Lab 05/08/20 05:11 Ordered MAGNESIUM [CHEM] AM Lab 05/09/20 05:11 Ordered MAGNESIUM [CHEM] AM Lab 05/10/20 05:11 Ordered MAGNESIUM [CHEM] AM Lab 05/11/20 05:11 Ordered MAGNESIUM [CHEM] AM Lab 05/12/20 05:11 Ordered Acetaminophen [TylenoL] Med 05/07/20 12:30 Active 650 mg PO Q4H PRN Albuterol/Ipratropium [Combivent Respimat] Med 05/07/20 18:00 Active See Dose Instructions INH QID Benzonatate [Tessalon Perles] Med 05/07/20 14:17 Ordered 200 mg PO TID PRN Codeine/guaiFENesin [Robitussin AC] Med 05/07/20 14:21 Ordered 5 ml PO Q6H PRN Dextrose 50% in Water Med 05/07/20 12:36 Active 50 ml IV ASDIRECTED PRN Docusate Sodium [Colace] Med 05/07/20 12:30 Active 100 mg PO BID PRN Enoxaparin [Lovenox] Med 05/07/20 13:00 Active 40 mg SUBCUT Q24H Finasteride [Proscar] Med 05/08/20 09:00 Ordered 5 mg PO DAILY Fluticasone/Umeclidin/Vilanter [Trelegy Ellipta 100-62. Med 05/08/20 09:00 Ordered 5-25 MCG] 1 puff INH DAILY Glucagon,Human Recombinant [GlucaGen] Med 05/07/20 12:36 Active 1 mg IM ASDIRECTED PRN Insulin Aspart [NovoLOG] Med 05/07/20 17:00 Active See Protocol SUBCUT TIDAC Omeprazole Med 05/07/20 21:00 Ordered 20 mg PO ACBREAKFASTANDBED Ondansetron [Zofran] Med 05/07/20 12:30 Active 4 mg IVPUSH Q4H PRN Remdesivir 100 mg Med 05/08/20 12:00 Ordered Sodium Chloride 0.9% [Normal Saline] 100 ml IV Q24H Sodium Chloride 0.9% [Saline Flush] Med 05/07/20 12:30 Active 2.5 ml FLUSH ASDIRECTED PRN dexAMETHasone Med 05/07/20 14:18 Ordered 6 mg PO DAILY RT Acapella [RESPCARE] Routine Oth 05/07/20 14:22 Ordered Saline Lock Insert [OM.PC] Routine Oth 05/07/20 12:30 Ordered Saline Lock Insert [OM.PC] Stat Oth 05/07/20 10:13 Ordered Resuscitation Status Routine Resus Stat 05/07/20 12:30 Ordered Medication Orders Acetaminophen (Tylenol) 650 mg PO Q4H PRN PRN Reason: Pain (Mild 1-3)/fever Albuterol/Ipratropium (Combivent Respimat) 0 gm INH QID NOBLE Benzonatate (Tessalon Perles) 200 mg PO TID PRN PRN Reason: Cough Dexamethasone (Dexamethasone) 6 mg PO DAILY NOBLE Stop: 05/16/20 09:01 Dextrose/Water (Dextrose 50% In Water) 50 ml IV ASDIRECTED PRN PRN Reason: Hypoglycemia Docusate Sodium (Colace) 100 mg PO BID PRN PRN Reason: Constipation Enoxaparin Sodium (Lovenox) 40 mg SUBCUT Q24H NOBLE Finasteride (Proscar) 5 mg PO DAILY NOBLE Glucagon (Glucagen) 1 mg IM ASDIRECTED PRN PRN Reason: Hypoglycemia Guaifenesin/Codeine Phosphate (Robitussin Ac) 5 ml PO Q6H PRN PRN Reason: Cough Remdesivir 100 mg/ Sodium (Chloride) 100 mls @ 100 mls/hr IV Q24H NOBLE Stop: 05/11/20 12:59 Insulin Aspart (Novolog) 0 unit SUBCUT TIDAC NOBLE; Protocol Non-Formulary Medication (Fluticasone/Umeclidin/Vilanter [Trelegy Ellipta 100-62.5-25 Mcg]) 1 puff INH DAILY NOBLE Omeprazole (Omeprazole) 20 mg PO ACBREAKFASTANDBED NOBLE Ondansetron HCl (Zofran) 4 mg IVPUSH Q4H PRN PRN Reason: Nausea Sodium Chloride (Saline Flush) 2.5 ml FLUSH ASDIRECTED PRN PRN Reason: Keep Vein Open Assessment/Plan Comment:: This 64 year old male admitted with acute hypoxic respiratory failure and COVID 19, viral pneumonia 1.Acute respiratory failure and COVID 19 pneumonia - We will obtain CTA of the chest to rule out PE and secondary bacterial infection due to length of illness. - Continue Oxygen therapy to keep sats >92% - Remdesivir 100 mg IV daily x 4 days - Dexamethasone 6 mg PO daily x 10 days - IS and Acapella - Prone position as much as possible - Combivent inhaler - CPAP with o2 at night for TON - Tessalon pearles and Robitussin PRN cough 2. HTN/HLD -Continue losartan -Monitor blood pressures 3. DM Type 2 - Novlog SSI with TIDAC BS checks - Monitor BS closely with steroid use - Hold PO diabetic medications 4. TON/COPD -Has not been using CPAP recently will hold off on ranitidine at this time. -Takes Trelegy for COPD encouraged to have bring this in. We will continue VTE prophylaxis: Lovenox GI prophylaxis: Omeprazole BID Dispo: 2-3 days pending improvement
[2020-05-07] MEDS: Benzonatate 100 MG Cap PO PRN ×2 (14:35→20:51)
[2020-05-07] MEDS: Enoxaparin 40 MG/0.4 ML Syringe SUBCUT SCH (14:39)
[2020-05-07] MEDS ORDERED: Iopamidol 755 MG/ML 500 ML Multipack Bottle IVPUSH ONE (15:39)
--- NOTE | 2020-05-07 16:09 | CT ---
Indication: Severe hypoxia and bellamy virus infection Technique: Volumetric multidetector CT images of the chest were obtained after the administration of IV contrast. 100 cc Isovue 370 low osmolar intravenous contrast Comparison: Single view chest May 07, 2020 Findings: The thoracic inlet and thyroid gland are unremarkable. The thoracic aorta is nonaneurysmal. There is no central filling defect to suggest pulmonary embolism. Mildly limited evaluation of the peripheral subsegmental arteries due to bolus timing. There is demonstration of reactive mediastinal and hilar adenopathy. The trachea and bronchi are well aerated without significant bronchiectasis. There are extensive ground-glass and airspace opacities seen throughout the bilateral hemithoraces likely representing multifocal infiltrates. There is no evidence of pulmonary mass or suspicious pulmonary nodule. The partially visualized upper abdominal viscera are within normal limits. The thoracic vertebral body heights are grossly maintained with [id number] degenerative disc disease. There is no evidence of significant spondylolisthesis or displaced fracture. Impression: No definite pulmonary embolus, limited exam due to bolus timing. Extensive ground-glass and airspace opacities consistent with atypical viral infiltrate. Please note that all CT scans at this facility use dose modulation, iterative reconstruction, and/or weight-based dosing when appropriate to reduce radiation dose to as low as reasonably achievable. Dictated by Delvin Titus MD @ May 07 2020 4:00PM Signed by Dr. Delvin Titus @ May 07 2020 4:06PM
[2020-05-07] MEDS: Dexamethasone 4 MG Tab PO SCH (17:18)
[2020-05-07] MEDS: Insulin Aspart 100 Units/ML 3 ML Pen SUBCUT SCH (17:21)
[2020-05-07] MEDS: Omeprazole 20 MG Cap.CR PO SCH (20:51)
[2020-05-07] MEDS: Albuterol/Ipratropium 4 GM Inhalation Spray INH SCH (21:31)
[2020-05-07] MEDS: Acetaminophen 325 MG Tab PO PRN (21:34)
[2020-05-07] MEDS: Codeine/guaiFENesin 10-100 MG/5 ML Syrup 5 ML Cup PO PRN (21:35)
[2020-05-08] MEDS: Albuterol/Ipratropium 4 GM Inhalation Spray INH SCH ×5 (00:29→23:02)
[2020-05-08] MEDS: Codeine/guaiFENesin 10-100 MG/5 ML Syrup 5 ML Cup PO PRN ×3 (04:09→23:03)
[2020-05-08 06:51] LABS: BLOOD UREA NITROGEN,BUN 25 mg/dL (7.0-18.0); CARBON DIOXIDE,CO2 27.4 mmol/L (21.0-32.0); CHLORIDE,CL 100 mmol/L (98-107); GLUCOSE RANDOM 273 mg/dL (74-106); POTASSIUM,K 4.2 mmol/L (3.5-5.1); SODIUM,NA 137 mmol/L (136-148)
[2020-05-08] MEDS: Benzonatate 100 MG Cap PO PRN ×2 (08:05→20:16)
[2020-05-08] MEDS: Dexamethasone 4 MG Tab PO SCH (08:06)
[2020-05-08] MEDS: Omeprazole 20 MG Cap.CR PO SCH ×2 (08:07→20:01)
[2020-05-08] MEDS: Finasteride 5 MG Tab PO SCH (08:07)
[2020-05-08] MEDS: Insulin Aspart 100 Units/ML 3 ML Pen SUBCUT SCH ×3 (08:09→17:19)
[2020-05-08] MEDS: Fluticasone/Umeclidin/Vilanter [Trelegy Ellipta 100-62.5-25 Mcg] INH SCH (09:45)
[2020-05-08] MEDS: REMDESIVIR 100 MG in Sodium Chloride 0.9% 100 ML IV SCH (11:54)
[2020-05-08] MEDS: Enoxaparin 40 MG/0.4 ML Syringe SUBCUT SCH (12:09)
--- NOTE | 2020-05-08 12:41 | PCM.PN ---
- General Info Date of Service: 05/08/20 - Review of Systems Systems Review Comment:: reports pain with coughing, nonproductive, shortness of breath when walking to bathroom - Patient Data Vitals - Most Recent: Last Vital Signs Temp 36.6 C 05/08/20 11:50 Pulse 66 05/08/20 11:50 Resp 18 05/08/20 11:50 BP 143/72 H 05/08/20 11:50 Pulse Ox 90 L 05/08/20 11:50 Weight - Most Recent: 99.79 kg I&O - Last 24 Hours: Intake & Output 05/07/20 05/08/20 05/08/20 22:59 06:59 14:59 Intake Total 740 1400 Output Total 0 3000 Balance 740 -1600 Lab Results Last 24 Hours: Laboratory Results - last 24 hr 05/07/20 05/08/20 05/08/20 Range/Units 17:16 06:25 06:25 WBC 9.88 (4.0-11.0) K/uL RBC 5.24 (4.50-5.90) M/uL Hgb 13.6 (13.0-17.0) g/dL Hct 43.1 (38.0-50.0) % MCV 82.3 (80.0-98.0) fL MCH 26.0 L (27.0-32.0) pg MCHC 31.6 (31.0-37.0) g/dL RDW Std Deviation 50.3 (28.0-62.0) fl RDW Coeff of Sayra 17 H (11.0-15.0) % Plt Count 190 (150-400) K/uL MPV 9.40 (7.40-12.00) fL Neut % (Auto) 87.2 H (48.0-80.0) % Lymph % (Auto) 5.5 L (16.0-40.0) % Boyle % (Auto) 7.3 (0.0-15.0) % Eos % (Auto) 0.0 (0.0-7.0) % Baso % (Auto) 0.0 (0.0-1.5) % Neut # (Auto) 8.6 H (1.4-5.7) K/uL Lymph # (Auto) 0.5 L (0.6-2.4) K/uL Boyle # (Auto) 0.7 (0.0-0.8) K/uL Eos # (Auto) 0.0 (0.0-0.7) K/uL Baso # (Auto) 0.0 (0.0-0.1) K/uL Nucleated RBC % 0.0 /100WBC Nucleated RBCs # 0 K/uL Sodium 137 (136-148) mmol/L Potassium 4.2 (3.5-5.1) mmol/L Chloride 100 (98-107) mmol/L Carbon Dioxide 27.4 (21.0-32.0) mmol/L BUN 25 H (7.0-18.0) mg/dL Creatinine 1.2 (0.8-1.3) mg/dL Est Cr Clr Drug Dosing 76.28 mL/min Estimated GFR (MDRD) > 60.0 ml/min Glucose 273 H (74-106) mg/dL POC Glucose 244 H (60-110) mg/dL Calcium 9.1 (8.5-10.1) mg/dL Magnesium 1.9 (1.8-2.4) mg/dL Total Bilirubin 0.4 (0.2-1.0) mg/dL AST 17 (15-37) IU/L ALT 22 (14-63) IU/L Alkaline Phosphatase 63 (46-116) U/L Total Protein 7.3 (6.4-8.2) g/dL Albumin 3.0 L (3.4-5.0) g/dL Globulin 4.3 H (2.6-4.0) g/dL Albumin/Globulin Ratio 0.7 L (0.9-1.6) 05/08/20 05/08/20 Range/Units 06:27 11:46 WBC (4.0-11.0) K/uL RBC (4.50-5.90) M/uL Hgb (13.0-17.0) g/dL Hct (38.0-50.0) % MCV (80.0-98.0) fL MCH (27.0-32.0) pg MCHC (31.0-37.0) g/dL RDW Std Deviation (28.0-62.0) fl RDW Coeff of Sayra (11.0-15.0) % Plt Count (150-400) K/uL MPV (7.40-12.00) fL Neut % (Auto) (48.0-80.0) % Lymph % (Auto) (16.0-40.0) % Boyle % (Auto) (0.0-15.0) % Eos % (Auto) (0.0-7.0) % Baso % (Auto) (0.0-1.5) % Neut # (Auto) (1.4-5.7) K/uL Lymph # (Auto) (0.6-2.4) K/uL Boyle # (Auto) (0.0-0.8) K/uL Eos # (Auto) (0.0-0.7) K/uL Baso # (Auto) (0.0-0.1) K/uL Nucleated RBC % /100WBC Nucleated RBCs # K/uL Sodium (136-148) mmol/L Potassium (3.5-5.1) mmol/L Chloride (98-107) mmol/L Carbon Dioxide (21.0-32.0) mmol/L BUN (7.0-18.0) mg/dL Creatinine (0.8-1.3) mg/dL Est Cr Clr Drug Dosing mL/min Estimated GFR (MDRD) ml/min Glucose (74-106) mg/dL POC Glucose 209 H 272 H (60-110) mg/dL Calcium (8.5-10.1) mg/dL Magnesium (1.8-2.4) mg/dL Total Bilirubin (0.2-1.0) mg/dL AST (15-37) IU/L ALT (14-63) IU/L Alkaline Phosphatase (46-116) U/L Total Protein (6.4-8.2) g/dL Albumin (3.4-5.0) g/dL Globulin (2.6-4.0) g/dL Albumin/Globulin Ratio (0.9-1.6) Med Orders - Current: Current Medications Acetaminophen (Tylenol) 650 mg PO Q4H PRN PRN Reason: Pain (Mild 1-3)/fever Last Admin: 05/07/20 21:34 Dose: 650 mg Documented by: Albuterol/Ipratropium (Combivent Respimat) 0 gm INH QID [facility] Last Admin: 05/08/20 11:40 Dose: 1 puff Documented by: Benzonatate (Tessalon Perles) 200 mg PO TID PRN PRN Reason: Cough Last Admin: 05/08/20 08:05 Dose: 200 mg Documented by: Dexamethasone (Dexamethasone) 6 mg PO DAILY [facility] Stop: 05/16/20 09:01 Last Admin: 05/08/20 08:06 Dose: 6 mg Documented by: Dextrose/Water (Dextrose 50% In Water) 50 ml IV ASDIRECTED PRN PRN Reason: Hypoglycemia Docusate Sodium (Colace) 100 mg PO BID PRN PRN Reason: Constipation Enoxaparin Sodium (Lovenox) 40 mg SUBCUT Q24H [facility] Last Admin: 05/08/20 12:09 Dose: 40 mg Documented by: Finasteride (Proscar) 5 mg PO DAILY [facility] Last Admin: 05/08/20 08:07 Dose: 5 mg Documented by: Glucagon (Glucagen) 1 mg IM ASDIRECTED PRN PRN Reason: Hypoglycemia Guaifenesin/Codeine Phosphate (Robitussin Ac) 5 ml PO Q6H PRN PRN Reason: Cough Last Admin: 05/08/20 04:09 Dose: 5 ml Documented by: Remdesivir 100 mg/ Sodium (Chloride) 100 mls @ 100 mls/hr IV Q24H [facility] Stop: 05/11/20 12:59 Last Admin: 05/08/20 11:54 Dose: 100 mls/hr Documented by: Insulin Aspart (Novolog) 0 unit SUBCUT TIDAC [facility]; Protocol Last Admin: 05/08/20 12:02 Dose: 6 unit Documented by: Omeprazole (Omeprazole) 20 mg PO ACBREAKFASTANDBED [facility] Last Admin: 05/08/20 08:07 Dose: 20 mg Documented by: Ondansetron HCl (Zofran) 4 mg IVPUSH Q4H PRN PRN Reason: Nausea Fluticasone/Umeclidin/Vilanter [ Trelegy Ellipta 100- 62.5-25 Mcg] 1 each INH DAILY [facility] Last Admin: 05/08/20 09:45 Dose: Not Given Documented by: Sodium Chloride (Saline Flush) 2.5 ml FLUSH ASDIRECTED PRN PRN Reason: Keep Vein Open Discontinued Medications Remdesivir 200 mg/ Sodium (Chloride) 250 mls @ 250 mls/hr IV ONETIME ONE Stop: 05/07/20 12:59 Last Admin: 05/07/20 12:11 Dose: 250 mls/hr Documented by: Pantoprazole Sodium 40 mg/ (Sodium Chloride) 10 mls @ 300 mls/hr IV Q24H [facility] Last Admin: 05/07/20 14:45 Dose: 300 mls/hr Documented by: Iopamidol (Isovue Multipack-370 (76%)) 100 ml IVPUSH ONETIME ONE Stop: 05/07/20 15:40 Last Admin: 05/07/20 15:40 Dose: 100 ml Documented by: Sodium Chloride (Saline Flush) 10 ml FLUSH ASDIRECTED PRN PRN Reason: Keep Vein Open Last Admin: 05/07/20 11:21 Dose: 10 ml Documented by: Sodium Chloride (Saline Flush) 2.5 ml FLUSH ASDIRECTED PRN PRN Reason: Keep Vein Open Last Admin: 05/07/20 11:21 Dose: 2.5 ml Documented by: - Exam General: Alert, Oriented Neck: Supple Lungs: Clear to Auscultation, Normal Respiratory Effort Cardiovascular: Regular Rate, Regular Rhythm GI/Abdominal Exam: Normal Bowel Sounds, Soft, Non-Tender, No Distention Extremities: Non-Tender, No Pedal Edema Skin: Warm, Dry, Intact Neurological: No New Focal Deficit Sepsis Event Note - Evaluation Sepsis Screening Result: No Definite Risk - Focused Exam Vital Signs: Vital Signs Temp Pulse Resp BP BP Pulse Ox 05/08/20 11:50 36.6 C 66 18 143/72 H 90 L 05/08/20 07:57 35.9 C L 85 18 125/63 92 L 05/08/20 04:14 36.8 C 83 17 141/72 H 90 L - Problem List Review Problem List Initiated/Reviewed/Updated: Yes - Plan Plan:: This 64 year old male admitted with acute hypoxic respiratory failure and COVID 19, viral pneumonia 1.Acute respiratory failure and COVID 19 pneumonia - CTA negative for PE - on 3 L NC - Remdesivir 100 mg IV daily x 4 days - Dexamethasone 6 mg PO daily x 10 days - IS and Acapella - Prone position as much as possible - Combivent inhaler - CPAP with o2 at night for TON - Tessalon pearles and Robitussin PRN cough 2. HTN/HLD -Continue losartan -Monitor blood pressures 3. DM Type 2 - Novlog SSI with TIDAC BS checks - Monitor BS closely with steroid use - Hold PO diabetic medications 4. TON/COPD -Has not been using CPAP recently will hold off on ranitidine at this time. -Takes Trelegy for COPD encouraged to have bring this in. We will continue VTE prophylaxis: Lovenox GI prophylaxis: Omeprazole BID Dispo: 3-4 days pending improvement
[2020-05-09] MEDS: Albuterol/Ipratropium 4 GM Inhalation Spray INH SCH ×4 (06:09→23:04)
[2020-05-09] MEDS: Omeprazole 20 MG Cap.CR PO SCH ×2 (06:50→20:01)
[2020-05-09 06:56] LABS: BLOOD UREA NITROGEN,BUN 28 mg/dL (7.0-18.0); CARBON DIOXIDE,CO2 27.3 mmol/L (21.0-32.0); CHLORIDE,CL 100 mmol/L (98-107); GLUCOSE RANDOM 246 mg/dL (74-106); POTASSIUM,K 4.1 mmol/L (3.5-5.1); SODIUM,NA 136 mmol/L (136-148)
[2020-05-09] MEDS: Insulin Aspart 100 Units/ML 3 ML Pen SUBCUT SCH ×3 (08:51→17:41)
[2020-05-09] MEDS: Finasteride 5 MG Tab PO SCH (08:53)
[2020-05-09] MEDS: Dexamethasone 4 MG Tab PO SCH (08:54)
[2020-05-09] MEDS: Fluticasone/Umeclidin/Vilanter [Trelegy Ellipta 100-62.5-25 Mcg] INH SCH (09:10)
[2020-05-09] MEDS: Codeine/guaiFENesin 10-100 MG/5 ML Syrup 5 ML Cup PO PRN ×3 (11:29→23:04)
--- NOTE | 2020-05-09 11:45 | PCM.PN ---
- General Info Date of Service: 05/09/20 Admission Dx/Problem (Free Text): Admission Diagnosis/Problem Admission Diagnosis/Problem Pneumonia Subjective Update: Patient seen at bedside, has been weaned to 4 Lts NC, continues to have cough, speaking in full sentences Functional Status: Reports: Tolerating Diet, Ambulating, Urinating - Review of Systems General: Reports: Weakness, Fatigue, Malaise. Denies: Fever Pulmonary: Reports: Shortness of Breath, Cough, Sputum. Denies: Pleuritic Chest Pain Cardiovascular: Reports: Dyspnea on Exertion. Denies: Chest Pain, Palpitations Gastrointestinal: Denies: Abdominal Pain, Constipation, Decreased Appetite Genitourinary: Denies: Dysuria, Frequency, Burning, Pain Musculoskeletal: Denies: Neck Pain, Shoulder Pain, Arm Pain Skin: Denies: Cyanosis, Jaundice, Mottled - Patient Data Vitals - Most Recent: Last Vital Signs Temp 36.1 C 05/09/20 11:34 Pulse 62 05/09/20 11:34 Resp 18 05/09/20 11:34 BP 146/74 H 05/09/20 11:34 Pulse Ox 90 L 05/09/20 11:34 Weight - Most Recent: 99.79 kg I&O - Last 24 Hours: Intake & Output 05/08/20 05/09/20 05/09/20 22:59 06:59 14:59 Intake Total 930 1426 Output Total 1300 2100 Balance -370 -674 Lab Results Last 24 Hours: Laboratory Results - last 24 hr 05/08/20 05/08/20 05/09/20 Range/Units 11:46 16:44 06:30 WBC 7.87 (4.0-11.0) K/uL RBC 5.46 (4.50-5.90) M/uL Hgb 14.1 (13.0-17.0) g/dL Hct 44.7 (38.0-50.0) % MCV 81.9 (80.0-98.0) fL MCH 25.8 L (27.0-32.0) pg MCHC 31.5 (31.0-37.0) g/dL RDW Std Deviation 49.6 (28.0-62.0) fl RDW Coeff of Sayra 17 H (11.0-15.0) % Plt Count 185 (150-400) K/uL MPV 9.20 (7.40-12.00) fL Add Manual Diff YES Neutrophils % (Manual) 74 (48.0-80.0) % Band Neutrophils % 2 % Lymphocytes % (Manual) 18 (16.0-40.0) % Monocytes % (Manual) 6 (0.0-15.0) % Nucleated RBC % 0.0 /100WBC Absolute Seg Neuts 5.8 H (1.4-5.7) Band Neutrophils # 0.2 Lymphocytes # (Manual) 1.4 (0.6-2.4) Monocytes # (Manual) 0.5 (0.0-0.8) Nucleated RBCs # 0 K/uL Sodium (136-148) mmol/L Potassium (3.5-5.1) mmol/L Chloride (98-107) mmol/L Carbon Dioxide (21.0-32.0) mmol/L BUN (7.0-18.0) mg/dL Creatinine (0.8-1.3) mg/dL Est Cr Clr Drug Dosing mL/min Estimated GFR (MDRD) ml/min Glucose (74-106) mg/dL POC Glucose 272 H 275 H (60-110) mg/dL Calcium (8.5-10.1) mg/dL Magnesium (1.8-2.4) mg/dL Total Bilirubin (0.2-1.0) mg/dL AST (15-37) IU/L ALT (14-63) IU/L Alkaline Phosphatase (46-116) U/L Total Protein (6.4-8.2) g/dL Albumin (3.4-5.0) g/dL Globulin (2.6-4.0) g/dL Albumin/Globulin Ratio (0.9-1.6) 05/09/20 05/09/20 05/09/20 Range/Units 06:30 06:49 08:48 WBC (4.0-11.0) K/uL RBC (4.50-5.90) M/uL Hgb (13.0-17.0) g/dL Hct (38.0-50.0) % MCV (80.0-98.0) fL MCH (27.0-32.0) pg MCHC (31.0-37.0) g/dL RDW Std Deviation (28.0-62.0) fl RDW Coeff of Sayra (11.0-15.0) % Plt Count (150-400) K/uL MPV (7.40-12.00) fL Add Manual Diff Neutrophils % (Manual) (48.0-80.0) % Band Neutrophils % % Lymphocytes % (Manual) (16.0-40.0) % Monocytes % (Manual) (0.0-15.0) % Nucleated RBC % /100WBC Absolute Seg Neuts (1.4-5.7) Band Neutrophils # Lymphocytes # (Manual) (0.6-2.4) Monocytes # (Manual) (0.0-0.8) Nucleated RBCs # K/uL Sodium 136 (136-148) mmol/L Potassium 4.1 (3.5-5.1) mmol/L Chloride 100 (98-107) mmol/L Carbon Dioxide 27.3 (21.0-32.0) mmol/L BUN 28 H (7.0-18.0) mg/dL Creatinine 1.0 (0.8-1.3) mg/dL Est Cr Clr Drug Dosing 91.54 mL/min Estimated GFR (MDRD) > 60.0 ml/min Glucose 246 H (74-106) mg/dL POC Glucose 198 H 198 H (60-110) mg/dL Calcium 9.5 (8.5-10.1) mg/dL Magnesium 1.8 (1.8-2.4) mg/dL Total Bilirubin 0.4 (0.2-1.0) mg/dL AST 16 (15-37) IU/L ALT 21 (14-63) IU/L Alkaline Phosphatase 61 (46-116) U/L Total Protein 7.4 (6.4-8.2) g/dL Albumin 2.9 L (3.4-5.0) g/dL Globulin 4.5 H (2.6-4.0) g/dL Albumin/Globulin Ratio 0.6 L (0.9-1.6) Med Orders - Current: Current Medications Acetaminophen (Tylenol) 650 mg PO Q4H PRN PRN Reason: Pain (Mild 1-3)/fever Last Admin: 05/07/20 21:34 Dose: 650 mg Documented by: Albuterol/Ipratropium (Combivent Respimat) 0 gm INH QID [facility] Last Admin: 05/09/20 11:39 Dose: 1 puff Documented by: Benzonatate (Tessalon Perles) 200 mg PO TID PRN PRN Reason: Cough Last Admin: 05/08/20 20:16 Dose: 200 mg Documented by: Dexamethasone (Dexamethasone) 6 mg PO DAILY [facility] Stop: 05/16/20 09:01 Last Admin: 05/09/20 08:54 Dose: 6 mg Documented by: Dextrose/Water (Dextrose 50% In Water) 50 ml IV ASDIRECTED PRN PRN Reason: Hypoglycemia Docusate Sodium (Colace) 100 mg PO BID PRN PRN Reason: Constipation Enoxaparin Sodium (Lovenox) 40 mg SUBCUT Q24H [facility] Last Admin: 05/08/20 12:09 Dose: 40 mg Documented by: Finasteride (Proscar) 5 mg PO DAILY [facility] Last Admin: 05/09/20 08:53 Dose: 5 mg Documented by: Glucagon (Glucagen) 1 mg IM ASDIRECTED PRN PRN Reason: Hypoglycemia Guaifenesin/Codeine Phosphate (Robitussin Ac) 5 ml PO Q4H PRN PRN Reason: Cough Last Admin: 05/09/20 11:29 Dose: 5 ml Documented by: Remdesivir 100 mg/ Sodium (Chloride) 100 mls @ 100 mls/hr IV Q24H [facility] Stop: 05/11/20 12:59 Last Admin: 05/08/20 11:54 Dose: 100 mls/hr Documented by: Insulin Aspart (Novolog) 0 unit SUBCUT TIDAC [facility]; Protocol Last Admin: 05/09/20 08:51 Dose: 2 unit Documented by: Omeprazole (Omeprazole) 20 mg PO ACBREAKFASTANDBED [facility] Last Admin: 05/09/20 06:50 Dose: 20 mg Documented by: Ondansetron HCl (Zofran) 4 mg IVPUSH Q4H PRN PRN Reason: Nausea Fluticasone/Umeclidin/Vilanter [ Trelegy Ellipta 100- 62.5-25 Mcg] 1 each INH DAILY [facility] Last Admin: 05/09/20 09:10 Dose: Not Given Documented by: Sodium Chloride (Saline Flush) 2.5 ml FLUSH ASDIRECTED PRN PRN Reason: Keep Vein Open Discontinued Medications Guaifenesin/Codeine Phosphate (Robitussin Ac) 5 ml PO Q6H PRN PRN Reason: Cough Last Admin: 05/08/20 23:03 Dose: 5 ml Documented by: Remdesivir 200 mg/ Sodium (Chloride) 250 mls @ 250 mls/hr IV ONETIME ONE Stop: 05/07/20 12:59 Last Admin: 05/07/20 12:11 Dose: 250 mls/hr Documented by: Pantoprazole Sodium 40 mg/ (Sodium Chloride) 10 mls @ 300 mls/hr IV Q24H [facility] Last Admin: 05/07/20 14:45 Dose: 300 mls/hr Documented by: Iopamidol (Isovue Multipack-370 (76%)) 100 ml IVPUSH ONETIME ONE Stop: 05/07/20 15:40 Last Admin: 05/07/20 15:40 Dose: 100 ml Documented by: Sodium Chloride (Saline Flush) 10 ml FLUSH ASDIRECTED PRN PRN Reason: Keep Vein Open Last Admin: 05/07/20 11:21 Dose: 10 ml Documented by: Sodium Chloride (Saline Flush) 2.5 ml FLUSH ASDIRECTED PRN PRN Reason: Keep Vein Open Last Admin: 05/07/20 11:21 Dose: 2.5 ml Documented by: - Exam Quality Assessment: Supplemental Oxygen General: Alert, Oriented Lungs: Normal Respiratory Effort, Crackles, Rales Cardiovascular: Regular Rate, Regular Rhythm GI/Abdominal Exam: Normal Bowel Sounds, Soft, Non-Tender Back Exam: Normal Inspection, Full Range of Motion Extremities: Normal Inspection, Normal Range of Motion Sepsis Event Note - Evaluation Sepsis Screening Result: No Definite Risk - Focused Exam Vital Signs: Vital Signs Temp Pulse Resp BP Pulse Ox 05/09/20 11:34 36.1 C 62 18 146/74 H 90 L 05/09/20 09:55 91 L 05/09/20 07:25 91 L 05/09/20 07:22 36.3 C 62 18 136/79 93 L 05/09/20 03:56 36.4 C 60 18 133/80 93 L 05/09/20 00:03 91 L 05/09/20 00:00 88 L - Problem List & Annotations (1) Acute respiratory failure with hypoxia SNOMED Code(s): 86318287, 753006727 Code(s): J96.01 - ACUTE RESPIRATORY FAILURE WITH HYPOXIA Status: Acute Current Visit: Yes (2) COVID-19 SNOMED Code(s): 566418270 Code(s): U07.1 - COVID-19 Status: Acute Current Visit: Yes (3) COPD (chronic obstructive pulmonary disease) SNOMED Code(s): 61967175 Code(s): J44.9 - CHRONIC OBSTRUCTIVE PULMONARY DISEASE, UNSPECIFIED Status: Chronic Current Visit: Yes (4) DM type 2 (diabetes mellitus, type 2) SNOMED Code(s): 24616453 Code(s): E11.9 - TYPE 2 DIABETES MELLITUS WITHOUT COMPLICATIONS Status: Chronic Current Visit: Yes Qualifiers: Diabetes mellitus predatory animal exterminator insulin use: without predatory animal exterminator use Diabetes mellitus complication status: without complication Qualified Code(s): E11.9 - Type 2 diabetes mellitus without complications (5) GERD (gastroesophageal reflux disease) SNOMED Code(s): 229033198 Code(s): K21.9 - GASTRO-ESOPHAGEAL REFLUX DISEASE WITHOUT ESOPHAGITIS Status: Chronic Current Visit: Yes (6) HLD (hyperlipidemia) SNOMED Code(s): 37611585 Code(s): E78.5 - HYPERLIPIDEMIA, UNSPECIFIED Status: Chronic Current Visit: Yes (7) HTN (hypertension) SNOMED Code(s): 58947687 Code(s): I10 - ESSENTIAL (PRIMARY) HYPERTENSION Status: Chronic Current Visit: Yes Qualifiers: Hypertension type: essential hypertension Qualified Code(s): I10 - Essential (primary) hypertension - Problem List Review Problem List Initiated/Reviewed/Updated: Yes - My Orders Last 24 Hours: My Active Orders 05/09/20 01:06 Codeine/guaiFENesin [Robitussin AC] 5 ml PO Q4H PRN - Plan Plan:: This 64 year old male admitted with acute hypoxic respiratory failure and COVID 19, viral pneumonia 1.Acute respiratory failure and COVID 19 pneumonia - CTA negative for PE - on 4 L NC - Remdesivir 100 mg IV daily x 4 days total - Dexamethasone 6 mg PO daily x 10 days - IS and Acapella - Prone position as much as possible - Combivent inhaler - CPAP with o2 at night for TON - Tessalon pearls and Robitussin with codeine PRN cough 2. HTN/HLD -Continue losartan -Monitor blood pressures 3. DM Type 2 - Novlog SSI with TIDAC BS checks - Monitor BS closely with steroid use - Hold PO diabetic medications 4. TON/COPD -Has not been using CPAP recently will hold off on ranitidine at this time. -Takes Trelegy for COPD, patient currently refusing due to the fact it triggers his cough VTE prophylaxis: Lovenox GI prophylaxis: Omeprazole BID Dispo: 3-4 days pending improvement
[2020-05-09] MEDS: Enoxaparin 40 MG/0.4 ML Syringe SUBCUT SCH (12:19)
[2020-05-09] MEDS: REMDESIVIR 100 MG in Sodium Chloride 0.9% 100 ML IV SCH (12:21)
[2020-05-09] MEDS: Benzonatate 100 MG Cap PO PRN (12:35)
[2020-05-09] MEDS: Acetaminophen 325 MG Tab PO PRN (15:58)
[2020-05-10] MEDS: Benzonatate 100 MG Cap PO PRN (04:16)
[2020-05-10] MEDS: Albuterol/Ipratropium 4 GM Inhalation Spray INH SCH ×5 (06:31→23:12)
[2020-05-10] MEDS: Omeprazole 20 MG Cap.CR PO SCH ×2 (06:31→20:20)
[2020-05-10 06:43] LABS: BLOOD UREA NITROGEN,BUN 29 mg/dL (7.0-18.0); CARBON DIOXIDE,CO2 26.7 mmol/L (21.0-32.0); CHLORIDE,CL 100 mmol/L (98-107); GLUCOSE RANDOM 276 mg/dL (74-106); POTASSIUM,K 4.1 mmol/L (3.5-5.1); SODIUM,NA 137 mmol/L (136-148)
[2020-05-10] MEDS: Insulin Aspart 100 Units/ML 3 ML Pen SUBCUT SCH ×3 (07:34→17:40)
[2020-05-10] MEDS: Finasteride 5 MG Tab PO SCH (08:44)
[2020-05-10] MEDS: Dexamethasone 4 MG Tab PO SCH (08:44)
[2020-05-10] MEDS: Fluticasone/Umeclidin/Vilanter [Trelegy Ellipta 100-62.5-25 Mcg] INH SCH (08:49)
[2020-05-10] MEDS: Codeine/guaiFENesin 10-100 MG/5 ML Syrup 5 ML Cup PO PRN ×3 (08:55→20:19)
--- NOTE | 2020-05-10 09:04 | PCM.PN ---
<Clarice Beth - Last Filed: 05/10/20 10:36> - General Info Date of Service: 05/10/20 Subjective Update: Mentions cough is more wet this AM. Coughing fits are still bothersome especially when using the bathroom; otherwise states some mild improvement - Review of Systems General: Reports: Fatigue HEENT: Reports: Sore Throat Pulmonary: Reports: Shortness of Breath, Cough, Sputum Cardiovascular: Reports: Dyspnea on Exertion. Denies: Edema Gastrointestinal: Reports: No Symptoms Musculoskeletal: Reports: No Symptoms Neurological: Reports: No Symptoms Psychiatric: Reports: No Symptoms - Patient Data Vitals - Most Recent: Last Vital Signs Temp 97.5 F 05/10/20 07:30 Pulse 65 05/10/20 07:30 Resp 18 05/10/20 07:30 BP 144/86 H 05/10/20 07:30 Pulse Ox 91 L 05/10/20 07:30 Weight - Most Recent: 99.79 kg I&O - Last 24 Hours: Intake & Output 05/09/20 05/10/20 05/10/20 22:59 06:59 14:59 Intake Total 1100 1250 Output Total 1700 2000 Balance -600 -750 Lab Results Last 24 Hours: Laboratory Results - last 24 hr 05/09/20 05/09/20 05/10/20 Range/Units 13:30 17:36 06:15 WBC 7.55 (4.0-11.0) K/uL RBC 5.41 (4.50-5.90) M/uL Hgb 14.3 (13.0-17.0) g/dL Hct 44.1 (38.0-50.0) % MCV 81.5 (80.0-98.0) fL MCH 26.4 L (27.0-32.0) pg MCHC 32.4 (31.0-37.0) g/dL RDW Std Deviation 48.6 (28.0-62.0) fl RDW Coeff of Sayra 16 H (11.0-15.0) % Plt Count 214 (150-400) K/uL MPV 9.70 (7.40-12.00) fL Neut % (Auto) 77.1 (48.0-80.0) % Lymph % (Auto) 12.3 L (16.0-40.0) % Ward % (Auto) 10.2 (0.0-15.0) % Eos % (Auto) 0.3 (0.0-7.0) % Baso % (Auto) 0.1 (0.0-1.5) % Neut # (Auto) 5.8 H (1.4-5.7) K/uL Lymph # (Auto) 0.9 (0.6-2.4) K/uL Ward # (Auto) 0.8 (0.0-0.8) K/uL Eos # (Auto) 0.0 (0.0-0.7) K/uL Baso # (Auto) 0.0 (0.0-0.1) K/uL Nucleated RBC % 0.0 /100WBC Nucleated RBCs # 0 K/uL Sodium (136-148) mmol/L Potassium (3.5-5.1) mmol/L Chloride (98-107) mmol/L Carbon Dioxide (21.0-32.0) mmol/L BUN (7.0-18.0) mg/dL Creatinine (0.8-1.3) mg/dL Est Cr Clr Drug Dosing mL/min Estimated GFR (MDRD) ml/min Glucose (74-106) mg/dL POC Glucose 261 H 327 H (60-110) mg/dL Calcium (8.5-10.1) mg/dL Magnesium (1.8-2.4) mg/dL Total Bilirubin (0.2-1.0) mg/dL AST (15-37) IU/L ALT (14-63) IU/L Alkaline Phosphatase (46-116) U/L Total Protein (6.4-8.2) g/dL Albumin (3.4-5.0) g/dL Globulin (2.6-4.0) g/dL Albumin/Globulin Ratio (0.9-1.6) 05/10/20 05/10/20 Range/Units 06:15 06:27 WBC (4.0-11.0) K/uL RBC (4.50-5.90) M/uL Hgb (13.0-17.0) g/dL Hct (38.0-50.0) % MCV (80.0-98.0) fL MCH (27.0-32.0) pg MCHC (31.0-37.0) g/dL RDW Std Deviation (28.0-62.0) fl RDW Coeff of Sayra (11.0-15.0) % Plt Count (150-400) K/uL MPV (7.40-12.00) fL Neut % (Auto) (48.0-80.0) % Lymph % (Auto) (16.0-40.0) % Ward % (Auto) (0.0-15.0) % Eos % (Auto) (0.0-7.0) % Baso % (Auto) (0.0-1.5) % Neut # (Auto) (1.4-5.7) K/uL Lymph # (Auto) (0.6-2.4) K/uL Ward # (Auto) (0.0-0.8) K/uL Eos # (Auto) (0.0-0.7) K/uL Baso # (Auto) (0.0-0.1) K/uL Nucleated RBC % /100WBC Nucleated RBCs # K/uL Sodium 137 (136-148) mmol/L Potassium 4.1 (3.5-5.1) mmol/L Chloride 100 (98-107) mmol/L Carbon Dioxide 26.7 (21.0-32.0) mmol/L BUN 29 H (7.0-18.0) mg/dL Creatinine 1.0 (0.8-1.3) mg/dL Est Cr Clr Drug Dosing 91.54 mL/min Estimated GFR (MDRD) > 60.0 ml/min Glucose 276 H (74-106) mg/dL POC Glucose 242 H (60-110) mg/dL Calcium 9.4 (8.5-10.1) mg/dL Magnesium 1.9 (1.8-2.4) mg/dL Total Bilirubin 0.4 (0.2-1.0) mg/dL AST 14 L (15-37) IU/L ALT 21 (14-63) IU/L Alkaline Phosphatase 66 (46-116) U/L Total Protein 7.2 (6.4-8.2) g/dL Albumin 2.9 L (3.4-5.0) g/dL Globulin 4.3 H (2.6-4.0) g/dL Albumin/Globulin Ratio 0.7 L (0.9-1.6) Med Orders - Current: Current Medications Acetaminophen (Tylenol) 650 mg PO Q4H PRN PRN Reason: Pain (Mild 1-3)/fever Last Admin: 05/09/20 15:58 Dose: 650 mg Documented by: Albuterol/Ipratropium (Combivent Respimat) 0 gm INH QID [facility] Last Admin: 05/10/20 06:31 Dose: 1 puff Documented by: Benzonatate (Tessalon Perles) 200 mg PO TID PRN PRN Reason: Cough Last Admin: 05/10/20 04:16 Dose: 200 mg Documented by: Dexamethasone (Dexamethasone) 6 mg PO DAILY [facility] Stop: 05/16/20 09:01 Last Admin: 05/10/20 08:44 Dose: 6 mg Documented by: Dextrose/Water (Dextrose 50% In Water) 50 ml IV ASDIRECTED PRN PRN Reason: Hypoglycemia Docusate Sodium (Colace) 100 mg PO BID PRN PRN Reason: Constipation Enoxaparin Sodium (Lovenox) 40 mg SUBCUT Q24H [facility] Last Admin: 05/09/20 12:19 Dose: 40 mg Documented by: Finasteride (Proscar) 5 mg PO DAILY [facility] Last Admin: 05/10/20 08:44 Dose: 5 mg Documented by: Glucagon (Glucagen) 1 mg IM ASDIRECTED PRN PRN Reason: Hypoglycemia Guaifenesin/Codeine Phosphate (Robitussin Ac) 5 ml PO Q4H PRN PRN Reason: Cough Last Admin: 05/10/20 08:55 Dose: 5 ml Documented by: Remdesivir 100 mg/ Sodium (Chloride) 100 mls @ 100 mls/hr IV Q24H [facility] Stop: 05/11/20 12:59 Last Admin: 05/09/20 12:21 Dose: 100 mls/hr Documented by: Insulin Aspart (Novolog) 0 unit SUBCUT TIDAC [facility]; Protocol Last Admin: 05/10/20 07:34 Dose: 4 unit Documented by: Omeprazole (Omeprazole) 20 mg PO ACBREAKFASTANDBED [facility] Last Admin: 05/10/20 06:31 Dose: 20 mg Documented by: Ondansetron HCl (Zofran) 4 mg IVPUSH Q4H PRN PRN Reason: Nausea Fluticasone/Umeclidin/Vilanter [ Trelegy Ellipta 100- 62.5-25 Mcg] 0 each INH DAILY [facility] Last Admin: 05/10/20 08:49 Dose: 1 each Documented by: Sodium Chloride (Saline Flush) 2.5 ml FLUSH ASDIRECTED PRN PRN Reason: Keep Vein Open Discontinued Medications Guaifenesin/Codeine Phosphate (Robitussin Ac) 5 ml PO Q6H PRN PRN Reason: Cough Last Admin: 05/08/20 23:03 Dose: 5 ml Documented by: Remdesivir 200 mg/ Sodium (Chloride) 250 mls @ 250 mls/hr IV ONETIME ONE Stop: 05/07/20 12:59 Last Admin: 05/07/20 12:11 Dose: 250 mls/hr Documented by: Pantoprazole Sodium 40 mg/ (Sodium Chloride) 10 mls @ 300 mls/hr IV Q24H [facility] Last Admin: 05/07/20 14:45 Dose: 300 mls/hr Documented by: Iopamidol (Isovue Multipack-370 (76%)) 100 ml IVPUSH ONETIME ONE Stop: 05/07/20 15:40 Last Admin: 05/07/20 15:40 Dose: 100 ml Documented by: Fluticasone/Umeclidin/Vilanter [ Trelegy Ellipta 100- 62.5-25 Mcg] 1 each INH DAILY [facility] Last Admin: 05/09/20 09:10 Dose: Not Given Documented by: Sodium Chloride (Saline Flush) 10 ml FLUSH ASDIRECTED PRN PRN Reason: Keep Vein Open Last Admin: 05/07/20 11:21 Dose: 10 ml Documented by: Sodium Chloride (Saline Flush) 2.5 ml FLUSH ASDIRECTED PRN PRN Reason: Keep Vein Open Last Admin: 05/07/20 11:21 Dose: 2.5 ml Documented by: - Exam Quality Assessment: Supplemental Oxygen General: Alert, Oriented, No Acute Distress HEENT: EOMI Neck: Supple Lungs: Other (Tight BS w. shortenede inspiuratory phase . no wheeze appreciated this AM ) Cardiovascular: Regular Rate, Regular Rhythm GI/Abdominal Exam: Soft Neurological: No New Focal Deficit, Sensation Intact Psy/Mental Status: Normal Affect Sepsis Event Note - Evaluation Sepsis Screening Result: No Definite Risk - Focused Exam Vital Signs: Vital Signs Temp Pulse Resp BP Pulse Ox 05/10/20 07:30 97.5 F 65 18 144/86 H 91 L 05/10/20 04:04 97.4 F 60 18 141/82 H 92 L 05/09/20 23:07 97.2 F 63 20 142/77 H 90 L - Problem List Review Problem List Initiated/Reviewed/Updated: Yes - Plan Plan:: This 64 year old male admitted with acute hypoxic respiratory failure and COVID 19, viral pneumonia 1.Acute respiratory failure and COVID 19 pneumonia - CTA negative for PE - on 4 L NC: 02 saturation goal is 88% due to hx of COPD - Remdesivir 100 mg IV daily x 4 days total - Dexamethasone 6 mg PO daily x 10 days - IS and Acapella - Prone position as much as possible - Combivent inhaler - CPAP with o2 at night for TON - Tessalon pearls and Robitussin with codeine PRN cough; will increase codeine cough syrup to 10 mL PRN q 4 hours 2. HTN/HLD -Continue losartan -Monitor blood pressures 3. DM Type 2 - Novlog SSI with TIDAC BS checks - Monitor BS closely with steroid use - Hold PO diabetic medications 4. TON/COPD -Has not been using CPAP recently will hold off on ranitidine at this time. VTE prophylaxis: Lovenox GI prophylaxis: Omeprazole BID <Roxanna Giraldo - Last Filed: 05/11/20 10:53> - Patient Data Vitals - Most Recent: Last Vital Signs Temp 36.3 C 05/11/20 07:55 Pulse 61 05/11/20 07:55 Resp 20 05/11/20 07:55 BP 143/78 H 05/11/20 07:55 Pulse Ox 90 L 05/11/20 07:55 I&O - Last 24 Hours: Intake & Output 05/10/20 05/11/20 05/11/20 22:59 06:59 14:59 Intake Total 1452 1500 Output Total 1200 2400 Balance 252 -900 Lab Results Last 24 Hours: Laboratory Results - last 24 hr 05/10/20 05/10/20 05/11/20 Range/Units 11:27 17:32 05:42 WBC 9.47 (4.0-11.0) K/uL RBC 5.44 (4.50-5.90) M/uL Hgb 14.1 (13.0-17.0) g/dL Hct 44.4 (38.0-50.0) % MCV 81.6 (80.0-98.0) fL MCH 25.9 L (27.0-32.0) pg MCHC 31.8 (31.0-37.0) g/dL RDW Std Deviation 48.0 (28.0-62.0) fl RDW Coeff of Sayra 16 H (11.0-15.0) % Plt Count 236 (150-400) K/uL MPV 9.90 (7.40-12.00) fL Neut % (Auto) 80.0 (48.0-80.0) % Lymph % (Auto) 9.7 L (16.0-40.0) % Ward % (Auto) 9.2 (0.0-15.0) % Eos % (Auto) 1.0 (0.0-7.0) % Baso % (Auto) 0.1 (0.0-1.5) % Neut # (Auto) 7.6 H (1.4-5.7) K/uL Lymph # (Auto) 0.9 (0.6-2.4) K/uL Ward # (Auto) 0.9 H (0.0-0.8) K/uL Eos # (Auto) 0.1 (0.0-0.7) K/uL Baso # (Auto) 0.0 (0.0-0.1) K/uL Nucleated RBC % 0.0 /100WBC Nucleated RBCs # 0 K/uL Sodium (136-148) mmol/L Potassium (3.5-5.1) mmol/L Chloride (98-107) mmol/L Carbon Dioxide (21.0-32.0) mmol/L BUN (7.0-18.0) mg/dL Creatinine (0.8-1.3) mg/dL Est Cr Clr Drug Dosing mL/min Estimated GFR (MDRD) ml/min Glucose (74-106) mg/dL POC Glucose 308 H 368 H (60-110) mg/dL Calcium (8.5-10.1) mg/dL Magnesium (1.8-2.4) mg/dL Total Bilirubin (0.2-1.0) mg/dL AST (15-37) IU/L ALT (14-63) IU/L Alkaline Phosphatase (46-116) U/L Total Protein (6.4-8.2) g/dL Albumin (3.4-5.0) g/dL Globulin (2.6-4.0) g/dL Albumin/Globulin Ratio (0.9-1.6) 05/11/20 05/11/20 Range/Units 05:42 06:04 WBC (4.0-11.0) K/uL RBC (4.50-5.90) M/uL Hgb (13.0-17.0) g/dL Hct (38.0-50.0) % MCV (80.0-98.0) fL MCH (27.0-32.0) pg MCHC (31.0-37.0) g/dL RDW Std Deviation (28.0-62.0) fl RDW Coeff of Sayra (11.0-15.0) % Plt Count (150-400) K/uL MPV (7.40-12.00) fL Neut % (Auto) (48.0-80.0) % Lymph % (Auto) (16.0-40.0) % Ward % (Auto) (0.0-15.0) % Eos % (Auto) (0.0-7.0) % Baso % (Auto) (0.0-1.5) % Neut # (Auto) (1.4-5.7) K/uL Lymph # (Auto) (0.6-2.4) K/uL Ward # (Auto) (0.0-0.8) K/uL Eos # (Auto) (0.0-0.7) K/uL Baso # (Auto) (0.0-0.1) K/uL Nucleated RBC % /100WBC Nucleated RBCs # K/uL Sodium 136 (136-148) mmol/L Potassium 4.3 (3.5-5.1) mmol/L Chloride 100 (98-107) mmol/L Carbon Dioxide 30.0 (21.0-32.0) mmol/L BUN 24 H (7.0-18.0) mg/dL Creatinine 1.2 (0.8-1.3) mg/dL Est Cr Clr Drug Dosing 76.28 mL/min Estimated GFR (MDRD) > 60.0 ml/min Glucose 284 H (74-106) mg/dL POC Glucose 228 H (60-110) mg/dL Calcium 9.4 (8.5-10.1) mg/dL Magnesium 1.9 (1.8-2.4) mg/dL Total Bilirubin 0.4 (0.2-1.0) mg/dL AST 14 L (15-37) IU/L ALT 27 (14-63) IU/L Alkaline Phosphatase 62 (46-116) U/L Total Protein 7.3 (6.4-8.2) g/dL Albumin 2.9 L (3.4-5.0) g/dL Globulin 4.4 H (2.6-4.0) g/dL Albumin/Globulin Ratio 0.7 L (0.9-1.6) Med Orders - Current: Current Medications Acetaminophen (Tylenol) 650 mg PO Q4H PRN PRN Reason: Pain (Mild 1-3)/fever Last Admin: 05/09/20 15:58 Dose: 650 mg Documented by: Albuterol/Ipratropium (Combivent Respimat) 0 gm INH QID [facility] Last Admin: 05/11/20 06:06 Dose: 1 puff Documented by: Allopurinol (Zyloprim) 300 mg PO DAILY [facility] Atorvastatin Calcium (Lipitor) 40 mg PO BEDTIME [facility] Benzonatate (Tessalon Perles) 200 mg PO TID PRN PRN Reason: Cough Last Admin: 05/10/20 04:16 Dose: 200 mg Documented by: Dexamethasone (Dexamethasone) 6 mg PO DAILY [facility] Stop: 05/16/20 09:01 Last Admin: 05/11/20 08:00 Dose: 6 mg Documented by: Dextrose/Water (Dextrose 50% In Water) 50 ml IV ASDIRECTED PRN PRN Reason: Hypoglycemia Docusate Sodium (Colace) 100 mg PO BID PRN PRN Reason: Constipation Enoxaparin Sodium (Lovenox) 40 mg SUBCUT Q24H [facility] Last Admin: 05/10/20 12:33 Dose: 40 mg Documented by: Finasteride (Proscar) 5 mg PO DAILY [facility] Last Admin: 05/11/20 08:00 Dose: 5 mg Documented by: Glucagon (Glucagen) 1 mg IM ASDIRECTED PRN PRN Reason: Hypoglycemia Guaifenesin/Codeine Phosphate (Robitussin Ac) 10 ml PO Q4H PRN PRN Reason: Cough Last Admin: 05/11/20 10:35 Dose: 10 ml Documented by: Remdesivir 100 mg/ Sodium (Chloride) 100 mls @ 100 mls/hr IV Q24H [facility] Stop: 05/11/20 12:59 Last Admin: 05/10/20 11:35 Dose: 100 mls/hr Documented by: Insulin Aspart (Novolog) 0 unit SUBCUT TIDAC [facility]; Protocol Last Admin: 05/11/20 07:56 Dose: 6 unit Documented by: Losartan Potassium (Cozaar) 100 mg PO DAILY [facility] Omeprazole (Omeprazole) 20 mg PO ACBREAKFASTANDBED [facility] Last Admin: 05/11/20 06:47 Dose: Not Given Documented by: Ondansetron HCl (Zofran) 4 mg IVPUSH Q4H PRN PRN Reason: Nausea Fluticasone/Umeclidin/Vilanter [ Trelegy Ellipta 100- 62.5-25 Mcg] 0 each INH DAILY [facility] Last Admin: 05/11/20 08:00 Dose: 1 each Documented by: Sodium Chloride (Saline Flush) 2.5 ml FLUSH ASDIRECTED PRN PRN Reason: Keep Vein Open Discontinued Medications Guaifenesin/Codeine Phosphate (Robitussin Ac) 5 ml PO Q6H PRN PRN Reason: Cough Last Admin: 05/08/20 23:03 Dose: 5 ml Documented by: Guaifenesin/Codeine Phosphate (Robitussin Ac) 5 ml PO Q4H PRN PRN Reason: Cough Last Admin: 05/10/20 08:55 Dose: 5 ml Documented by: Remdesivir 200 mg/ Sodium (Chloride) 250 mls @ 250 mls/hr IV ONETIME ONE Stop: 05/07/20 12:59 Last Admin: 05/07/20 12:11 Dose: 250 mls/hr Documented by: Pantoprazole Sodium 40 mg/ (Sodium Chloride) 10 mls @ 300 mls/hr IV Q24H [facility] Last Admin: 05/07/20 14:45 Dose: 300 mls/hr Documented by: Iopamidol (Isovue Multipack-370 (76%)) 100 ml IVPUSH ONETIME ONE Stop: 05/07/20 15:40 Last Admin: 05/07/20 15:40 Dose: 100 ml Documented by: Fluticasone/Umeclidin/Vilanter [ Trelegy Ellipta 100- 62.5-25 Mcg] 1 each INH DAILY [facility] Last Admin: 05/09/20 09:10 Dose: Not Given Documented by: Sodium Chloride (Saline Flush) 10 ml FLUSH ASDIRECTED PRN PRN Reason: Keep Vein Open Last Admin: 05/07/20 11:21 Dose: 10 ml Documented by: Sodium Chloride (Saline Flush) 2.5 ml FLUSH ASDIRECTED PRN PRN Reason: Keep Vein Open Last Admin: 05/07/20 11:21 Dose: 2.5 ml Documented by: Sepsis Event Note - Focused Exam Vital Signs: Vital Signs Temp Pulse Resp BP Pulse Ox 05/11/20 07:55 36.3 C 61 20 143/78 H 90 L 05/11/20 03:00 36.4 C 56 L 20 140/69 88 L 05/10/20 23:04 36.3 C 54 L 20 145/75 H 92 L - Problem List & Annotations (1) Acute respiratory failure with hypoxia SNOMED Code(s): 95788211, 153685230 Code(s): J96.01 - ACUTE RESPIRATORY FAILURE WITH HYPOXIA Status: Acute Current Visit: Yes (2) COVID-19 SNOMED Code(s): 367255986 Code(s): U07.1 - COVID-19 Status: Acute Current Visit: Yes (3) COPD (chronic obstructive pulmonary disease) SNOMED Code(s): 28588821 Code(s): J44.9 - CHRONIC OBSTRUCTIVE PULMONARY DISEASE, UNSPECIFIED Status: Chronic Current Visit: Yes (4) DM type 2 (diabetes mellitus, type 2) SNOMED Code(s): 65467342 Code(s): E11.9 - TYPE 2 DIABETES MELLITUS WITHOUT COMPLICATIONS Status: Chronic Current Visit: Yes Qualifiers: Diabetes mellitus exterminator insulin use: without halfway use Diabetes mellitus complication status: without complication Qualified Code(s): E11.9 - Type 2 diabetes mellitus without complications (5) GERD (gastroesophageal reflux disease) SNOMED Code(s): 659238081 Code(s): K21.9 - GASTRO-ESOPHAGEAL REFLUX DISEASE WITHOUT ESOPHAGITIS Status: Chronic Current Visit: Yes (6) HLD (hyperlipidemia) SNOMED Code(s): 61894047 Code(s): E78.5 - HYPERLIPIDEMIA, UNSPECIFIED Status: Chronic Current Visit: Yes (7) HTN (hypertension) SNOMED Code(s): 87234258 Code(s): I10 - ESSENTIAL (PRIMARY) HYPERTENSION Status: Chronic Current Visit: Yes Qualifiers: Hypertension type: essential hypertension Qualified Code(s): I10 - Essential (primary) hypertension - Plan Plan:: I have seen and evaluated the patient and agree with the residents note unless specified in my note
[2020-05-10] MEDS: REMDESIVIR 100 MG in Sodium Chloride 0.9% 100 ML IV SCH (11:35)
[2020-05-10] MEDS: Enoxaparin 40 MG/0.4 ML Syringe SUBCUT SCH (12:33)
[2020-05-11] MEDS: Codeine/guaiFENesin 10-100 MG/5 ML Syrup 5 ML Cup PO PRN ×4 (01:40→20:17)
[2020-05-11] MEDS: Albuterol/Ipratropium 4 GM Inhalation Spray INH SCH ×4 (01:41→17:55)
[2020-05-11] MEDS: Omeprazole 20 MG Cap.CR PO SCH ×3 (06:07→20:17)
[2020-05-11 06:25] LABS: BLOOD UREA NITROGEN,BUN 24 mg/dL (7.0-18.0); CHLORIDE,CL 100 mmol/L (98-107); GLUCOSE RANDOM 284 mg/dL (74-106); POTASSIUM,K 4.3 mmol/L (3.5-5.1); SODIUM,NA 136 mmol/L (136-148)
[2020-05-11] MEDS: Insulin Aspart 100 Units/ML 3 ML Pen SUBCUT SCH ×3 (07:56→17:53)
[2020-05-11] MEDS: Fluticasone/Umeclidin/Vilanter [Trelegy Ellipta 100-62.5-25 Mcg] INH SCH (08:00)
[2020-05-11] MEDS: Dexamethasone 4 MG Tab PO SCH (08:00)
[2020-05-11] MEDS: Finasteride 5 MG Tab PO SCH (08:00)
--- NOTE | 2020-05-11 08:52 | PCM.PN ---
<Clarice Beth - Last Filed: 05/11/20 10:06> - General Info Date of Service: 05/11/20 Subjective Update: Bedside: endorses feeling like being able to take deeper breaths w.o cough. Slept better last night. Denies CP - Review of Systems General: Reports: No Symptoms HEENT: Reports: No Symptoms Pulmonary: Reports: Shortness of Breath, Cough. Denies: Sputum, Wheezing Cardiovascular: Reports: No Symptoms Gastrointestinal: Reports: No Symptoms Musculoskeletal: Reports: No Symptoms Neurological: Reports: No Symptoms. Denies: Headache - Patient Data Vitals - Most Recent: Last Vital Signs Temp 97.4 F 05/11/20 07:55 Pulse 61 05/11/20 07:55 Resp 20 05/11/20 07:55 BP 143/78 H 05/11/20 07:55 Pulse Ox 90 L 05/11/20 07:55 Weight - Most Recent: 99.79 kg I&O - Last 24 Hours: Intake & Output 05/10/20 05/11/20 05/11/20 22:59 06:59 14:59 Intake Total 1452 1500 Output Total 1200 2400 Balance 252 -900 Lab Results Last 24 Hours: Laboratory Results - last 24 hr 05/10/20 05/10/20 05/11/20 Range/Units 11:27 17:32 05:42 WBC 9.47 (4.0-11.0) K/uL RBC 5.44 (4.50-5.90) M/uL Hgb 14.1 (13.0-17.0) g/dL Hct 44.4 (38.0-50.0) % MCV 81.6 (80.0-98.0) fL MCH 25.9 L (27.0-32.0) pg MCHC 31.8 (31.0-37.0) g/dL RDW Std Deviation 48.0 (28.0-62.0) fl RDW Coeff of Sayra 16 H (11.0-15.0) % Plt Count 236 (150-400) K/uL MPV 9.90 (7.40-12.00) fL Neut % (Auto) 80.0 (48.0-80.0) % Lymph % (Auto) 9.7 L (16.0-40.0) % [place] % (Auto) 9.2 (0.0-15.0) % Eos % (Auto) 1.0 (0.0-7.0) % Baso % (Auto) 0.1 (0.0-1.5) % Neut # (Auto) 7.6 H (1.4-5.7) K/uL Lymph # (Auto) 0.9 (0.6-2.4) K/uL [place] # (Auto) 0.9 H (0.0-0.8) K/uL Eos # (Auto) 0.1 (0.0-0.7) K/uL Baso # (Auto) 0.0 (0.0-0.1) K/uL Nucleated RBC % 0.0 /100WBC Nucleated RBCs # 0 K/uL Sodium (136-148) mmol/L Potassium (3.5-5.1) mmol/L Chloride (98-107) mmol/L Carbon Dioxide (21.0-32.0) mmol/L BUN (7.0-18.0) mg/dL Creatinine (0.8-1.3) mg/dL Est Cr Clr Drug Dosing mL/min Estimated GFR (MDRD) ml/min Glucose (74-106) mg/dL POC Glucose 308 H 368 H (60-110) mg/dL Calcium (8.5-10.1) mg/dL Magnesium (1.8-2.4) mg/dL Total Bilirubin (0.2-1.0) mg/dL AST (15-37) IU/L ALT (14-63) IU/L Alkaline Phosphatase (46-116) U/L Total Protein (6.4-8.2) g/dL Albumin (3.4-5.0) g/dL Globulin (2.6-4.0) g/dL Albumin/Globulin Ratio (0.9-1.6) 05/11/20 05/11/20 Range/Units 05:42 06:04 WBC (4.0-11.0) K/uL RBC (4.50-5.90) M/uL Hgb (13.0-17.0) g/dL Hct (38.0-50.0) % MCV (80.0-98.0) fL MCH (27.0-32.0) pg MCHC (31.0-37.0) g/dL RDW Std Deviation (28.0-62.0) fl RDW Coeff of Sayra (11.0-15.0) % Plt Count (150-400) K/uL MPV (7.40-12.00) fL Neut % (Auto) (48.0-80.0) % Lymph % (Auto) (16.0-40.0) % Dixie % (Auto) (0.0-15.0) % Eos % (Auto) (0.0-7.0) % Baso % (Auto) (0.0-1.5) % Neut # (Auto) (1.4-5.7) K/uL Lymph # (Auto) (0.6-2.4) K/uL Dixie # (Auto) (0.0-0.8) K/uL Eos # (Auto) (0.0-0.7) K/uL Baso # (Auto) (0.0-0.1) K/uL Nucleated RBC % /100WBC Nucleated RBCs # K/uL Sodium 136 (136-148) mmol/L Potassium 4.3 (3.5-5.1) mmol/L Chloride 100 (98-107) mmol/L Carbon Dioxide 30.0 (21.0-32.0) mmol/L BUN 24 H (7.0-18.0) mg/dL Creatinine 1.2 (0.8-1.3) mg/dL Est Cr Clr Drug Dosing 76.28 mL/min Estimated GFR (MDRD) > 60.0 ml/min Glucose 284 H (74-106) mg/dL POC Glucose 228 H (60-110) mg/dL Calcium 9.4 (8.5-10.1) mg/dL Magnesium 1.9 (1.8-2.4) mg/dL Total Bilirubin 0.4 (0.2-1.0) mg/dL AST 14 L (15-37) IU/L ALT 27 (14-63) IU/L Alkaline Phosphatase 62 (46-116) U/L Total Protein 7.3 (6.4-8.2) g/dL Albumin 2.9 L (3.4-5.0) g/dL Globulin 4.4 H (2.6-4.0) g/dL Albumin/Globulin Ratio 0.7 L (0.9-1.6) Med Orders - Current: Current Medications Acetaminophen (Tylenol) 650 mg PO Q4H PRN PRN Reason: Pain (Mild 1-3)/fever Last Admin: 05/09/20 15:58 Dose: 650 mg Documented by: Albuterol/Ipratropium (Combivent Respimat) 0 gm INH QID [facility] Last Admin: 05/11/20 06:06 Dose: 1 puff Documented by: Benzonatate (Tessalon Perles) 200 mg PO TID PRN PRN Reason: Cough Last Admin: 05/10/20 04:16 Dose: 200 mg Documented by: Dexamethasone (Dexamethasone) 6 mg PO DAILY [facility] Stop: 05/16/20 09:01 Last Admin: 05/11/20 08:00 Dose: 6 mg Documented by: Dextrose/Water (Dextrose 50% In Water) 50 ml IV ASDIRECTED PRN PRN Reason: Hypoglycemia Docusate Sodium (Colace) 100 mg PO BID PRN PRN Reason: Constipation Enoxaparin Sodium (Lovenox) 40 mg SUBCUT Q24H [facility] Last Admin: 05/10/20 12:33 Dose: 40 mg Documented by: Finasteride (Proscar) 5 mg PO DAILY [facility] Last Admin: 05/11/20 08:00 Dose: 5 mg Documented by: Glucagon (Glucagen) 1 mg IM ASDIRECTED PRN PRN Reason: Hypoglycemia Guaifenesin/Codeine Phosphate (Robitussin Ac) 10 ml PO Q4H PRN PRN Reason: Cough Last Admin: 05/11/20 06:05 Dose: 10 ml Documented by: Remdesivir 100 mg/ Sodium (Chloride) 100 mls @ 100 mls/hr IV Q24H [facility] Stop: 05/11/20 12:59 Last Admin: 05/10/20 11:35 Dose: 100 mls/hr Documented by: Insulin Aspart (Novolog) 0 unit SUBCUT TIDAC [facility]; Protocol Last Admin: 05/11/20 07:56 Dose: 6 unit Documented by: Omeprazole (Omeprazole) 20 mg PO ACBREAKFASTANDBED [facility] Last Admin: 05/11/20 06:47 Dose: Not Given Documented by: Ondansetron HCl (Zofran) 4 mg IVPUSH Q4H PRN PRN Reason: Nausea Fluticasone/Umeclidin/Vilanter [ Trelegy Ellipta 100- 62.5-25 Mcg] 0 each INH DAILY [facility] Last Admin: 05/11/20 08:00 Dose: 1 each Documented by: Sodium Chloride (Saline Flush) 2.5 ml FLUSH ASDIRECTED PRN PRN Reason: Keep Vein Open Discontinued Medications Guaifenesin/Codeine Phosphate (Robitussin Ac) 5 ml PO Q6H PRN PRN Reason: Cough Last Admin: 05/08/20 23:03 Dose: 5 ml Documented by: Guaifenesin/Codeine Phosphate (Robitussin Ac) 5 ml PO Q4H PRN PRN Reason: Cough Last Admin: 05/10/20 08:55 Dose: 5 ml Documented by: Remdesivir 200 mg/ Sodium (Chloride) 250 mls @ 250 mls/hr IV ONETIME ONE Stop: 05/07/20 12:59 Last Admin: 05/07/20 12:11 Dose: 250 mls/hr Documented by: Pantoprazole Sodium 40 mg/ (Sodium Chloride) 10 mls @ 300 mls/hr IV Q24H [facility] Last Admin: 05/07/20 14:45 Dose: 300 mls/hr Documented by: Iopamidol (Isovue Multipack-370 (76%)) 100 ml IVPUSH ONETIME ONE Stop: 05/07/20 15:40 Last Admin: 05/07/20 15:40 Dose: 100 ml Documented by: Fluticasone/Umeclidin/Vilanter [ Trelegy Ellipta 100- 62.5-25 Mcg] 1 each INH DAILY [facility] Last Admin: 05/09/20 09:10 Dose: Not Given Documented by: Sodium Chloride (Saline Flush) 10 ml FLUSH ASDIRECTED PRN PRN Reason: Keep Vein Open Last Admin: 05/07/20 11:21 Dose: 10 ml Documented by: Sodium Chloride (Saline Flush) 2.5 ml FLUSH ASDIRECTED PRN PRN Reason: Keep Vein Open Last Admin: 05/07/20 11:21 Dose: 2.5 ml Documented by: - Exam Quality Assessment: Supplemental Oxygen General: Alert, Oriented, Cooperative, No Acute Distress HEENT: Mucous Membr. Moist/[place] Neck: Supple Lungs: Other (longer Inspiratory/expiratory phase compared to yesterday. Mild rhonchi noted in b.l lung mae w. deep inspiration ) Cardiovascular: Regular Rate, Regular Rhythm GI/Abdominal Exam: Soft, Non-Tender Extremities: No Pedal Edema Neurological: No New Focal Deficit Psy/Mental Status: Alert, Normal Affect, Normal Mood Sepsis Event Note - Evaluation Sepsis Screening Result: No Definite Risk - Focused Exam Vital Signs: Vital Signs Temp Pulse Resp BP Pulse Ox 05/11/20 07:55 97.4 F 61 20 143/78 H 90 L 05/11/20 03:00 97.5 F 56 L 20 140/69 88 L 05/10/20 23:04 97.4 F 54 L 20 145/75 H 92 L - Problem List Review Problem List Initiated/Reviewed/Updated: Yes - My Orders Last 24 Hours: My Active Orders 05/10/20 10:28 Codeine/guaiFENesin [Robitussin AC] 10 ml PO Q4H PRN - Plan Plan:: This 64 year old male admitted with acute hypoxic respiratory failure and COVID 19, viral pneumonia 1.Acute respiratory failure and COVID 19 pneumonia - CTA negative for PE - on 2 L NC: 02 saturation goal is 88% due to hx of COPD - Remdesivir 100 mg IV daily x 4 days total - Dexamethasone 6 mg PO daily x 10 days - IS and Acapella - Prone position as much as possible - Combivent inhaler - CPAP with o2 at night for TON - Tessalon pearls +codeine cough syrup to 10 mL PRN q 4 hours 2. HTN/HLD -Continue losartan -Monitor blood pressures 3. DM Type 2 - Novlog SSI with TIDAC BS checks - Monitor BS closely with steroid use - Hold PO diabetic medications 4. TON/COPD -maintain o2 sats > 88% VTE prophylaxis: Lovenox GI prophylaxis: Omeprazole <Roxanna Giraldo - Last Filed: 05/13/20 23:55> - General Info Subjective Update: I have seen and evaluated the patient and agree with the residents note unless specified in my note - Patient Data Vitals - Most Recent: Last Vital Signs Temp 36.7 C 05/12/20 07:35 Pulse 70 05/12/20 07:35 Resp 18 05/12/20 07:35 BP 119/76 05/12/20 08:42 Pulse Ox 89 L 05/12/20 07:35 Med Orders - Current: Current Medications Discontinued Medications Acetaminophen (Tylenol) 650 mg PO Q4H PRN PRN Reason: Pain (Mild 1-3)/fever Last Admin: 05/09/20 15:58 Dose: 650 mg Documented by: Albuterol/Ipratropium (Combivent Respimat) 0 gm INH QID [facility] Last Admin: 05/12/20 06:08 Dose: 1 puff Documented by: Allopurinol (Zyloprim) 300 mg PO DAILY [facility] Last Admin: 05/11/20 11:17 Dose: Not Given Documented by: Allopurinol (Zyloprim) 300 mg PO DAILY [facility] Last Admin: 05/12/20 08:42 Dose: 300 mg Documented by: Atorvastatin Calcium (Lipitor) 40 mg PO BEDTIME [facility] Last Admin: 05/11/20 20:17 Dose: 40 mg Documented by: Benzonatate (Tessalon Perles) 200 mg PO TID PRN PRN Reason: Cough Last Admin: 05/10/20 04:16 Dose: 200 mg Documented by: Dexamethasone (Dexamethasone) 6 mg PO DAILY [facility] Stop: 05/16/20 09:01 Last Admin: 05/12/20 08:41 Dose: 6 mg Documented by: Dextrose/Water (Dextrose 50% In Water) 50 ml IV ASDIRECTED PRN PRN Reason: Hypoglycemia Docusate Sodium (Colace) 100 mg PO BID PRN PRN Reason: Constipation Enoxaparin Sodium (Lovenox) 40 mg SUBCUT Q24H [facility] Last Admin: 05/11/20 12:18 Dose: 40 mg Documented by: Finasteride (Proscar) 5 mg PO DAILY [facility] Last Admin: 05/12/20 08:42 Dose: 5 mg Documented by: Glucagon (Glucagen) 1 mg IM ASDIRECTED PRN PRN Reason: Hypoglycemia Guaifenesin/Codeine Phosphate (Robitussin Ac) 5 ml PO Q6H PRN PRN Reason: Cough Last Admin: 05/08/20 23:03 Dose: 5 ml Documented by: Guaifenesin/Codeine Phosphate (Robitussin Ac) 5 ml PO Q4H PRN PRN Reason: Cough Last Admin: 05/10/20 08:55 Dose: 5 ml Documented by: Guaifenesin/Codeine Phosphate (Robitussin Ac) 10 ml PO Q4H PRN PRN Reason: Cough Last Admin: 05/12/20 06:41 Dose: 10 ml Documented by: Remdesivir 200 mg/ Sodium (Chloride) 250 mls @ 250 mls/hr IV ONETIME ONE Stop: 05/07/20 12:59 Last Admin: 05/07/20 12:11 Dose: 250 mls/hr Documented by: Pantoprazole Sodium 40 mg/ (Sodium Chloride) 10 mls @ 300 mls/hr IV Q24H [facility] Last Admin: 05/07/20 14:45 Dose: 300 mls/hr Documented by: Remdesivir 100 mg/ Sodium (Chloride) 100 mls @ 100 mls/hr IV Q24H [facility] Stop: 05/11/20 12:59 Last Admin: 05/11/20 12:10 Dose: 100 mls/hr Documented by: Insulin Aspart (Novolog) 0 unit SUBCUT TIDAC [facility]; Protocol Last Admin: 05/12/20 12:07 Dose: Not Given Documented by: Iopamidol (Isovue Multipack-370 (76%)) 100 ml IVPUSH ONETIME ONE Stop: 05/07/20 15:40 Last Admin: 05/07/20 15:40 Dose: 100 ml Documented by: Losartan Potassium (Cozaar) 100 mg PO DAILY [facility] Last Admin: 05/11/20 11:16 Dose: Not Given Documented by: Losartan Potassium (Cozaar) 100 mg PO DAILY [facility] Last Admin: 05/12/20 08:42 Dose: 100 mg Documented by: Omeprazole (Omeprazole) 20 mg PO ACBREAKFASTANDBED [facility] Last Admin: 05/12/20 06:41 Dose: 20 mg Documented by: Ondansetron HCl (Zofran) 4 mg IVPUSH Q4H PRN PRN Reason: Nausea Fluticasone/Umeclidin/Vilanter [ Trelegy Ellipta 100- 62.5-25 Mcg] 1 each INH DAILY [facility] Last Admin: 05/09/20 09:10 Dose: Not Given Documented by: Fluticasone/Umeclidin/Vilanter [ Trelegy Ellipta 100- 62.5-25 Mcg] 0 each INH DAILY [facility] Last Admin: 05/12/20 08:42 Dose: 1 each Documented by: Sodium Chloride (Saline Flush) 10 ml FLUSH ASDIRECTED PRN PRN Reason: Keep Vein Open Last Admin: 05/07/20 11:21 Dose: 10 ml Documented by: Sodium Chloride (Saline Flush) 2.5 ml FLUSH ASDIRECTED PRN PRN Reason: Keep Vein Open Last Admin: 05/07/20 11:21 Dose: 2.5 ml Documented by: Sodium Chloride (Saline Flush) 2.5 ml FLUSH ASDIRECTED PRN PRN Reason: Keep Vein Open - Problem List & Annotations (1) Acute respiratory failure with hypoxia SNOMED Code(s): 51651139, 613390343 Code(s): J96.01 - ACUTE RESPIRATORY FAILURE WITH HYPOXIA Status: Acute (2) COVID-19 SNOMED Code(s): 108175079 Code(s): U07.1 - COVID-19 Status: Acute (3) COPD (chronic obstructive pulmonary disease) SNOMED Code(s): 57853811 Code(s): J44.9 - CHRONIC OBSTRUCTIVE PULMONARY DISEASE, UNSPECIFIED Status: Chronic (4) DM type 2 (diabetes mellitus, type 2) SNOMED Code(s): 58829683 Code(s): E11.9 - TYPE 2 DIABETES MELLITUS WITHOUT COMPLICATIONS Status: Chronic Qualifiers: Diabetes mellitus correction insulin use: without correction use Diabetes mellitus complication status: without complication Qualified Code(s): E11.9 - Type 2 diabetes mellitus without complications (5) GERD (gastroesophageal reflux disease) SNOMED Code(s): 430131881 Code(s): K21.9 - GASTRO-ESOPHAGEAL REFLUX DISEASE WITHOUT ESOPHAGITIS Status: Chronic (6) HLD (hyperlipidemia) SNOMED Code(s): 36224328 Code(s): E78.5 - HYPERLIPIDEMIA, UNSPECIFIED Status: Chronic (7) HTN (hypertension) SNOMED Code(s): 43839724 Code(s): I10 - ESSENTIAL (PRIMARY) HYPERTENSION Status: Chronic Qualifiers: Hypertension type: essential hypertension Qualified Code(s): I10 - Essential (primary) hypertension
[2020-05-11] MEDS ORDERED: Allopurinol 300 MG Tab PO SCH (10:30)
[2020-05-11] MEDS ORDERED: Losartan 50 MG Tab PO SCH (10:30)
[2020-05-11] MEDS: REMDESIVIR 100 MG in Sodium Chloride 0.9% 100 ML IV SCH (12:10)
[2020-05-11] MEDS: Enoxaparin 40 MG/0.4 ML Syringe SUBCUT SCH (12:18)
[2020-05-11] MEDS: Allopurinol 300 MG Tab PO SCH (12:19)
[2020-05-11] MEDS: Losartan 50 MG Tab PO SCH (12:19)
[2020-05-11] MEDS ORDERED: atorvaSTATin 40 MG Tab PO SCH (21:00)
[2020-05-12] MEDS: Albuterol/Ipratropium 4 GM Inhalation Spray INH SCH ×2 (00:10→06:08)
[2020-05-12] MEDS: Codeine/guaiFENesin 10-100 MG/5 ML Syrup 5 ML Cup PO PRN ×2 (00:17→06:41)
[2020-05-12] MEDS: Omeprazole 20 MG Cap.CR PO SCH (06:41)
[2020-05-12 07:36] VITALS: BP 119/76; PULSE 70
[2020-05-12] MEDS: Insulin Aspart 100 Units/ML 3 ML Pen SUBCUT SCH ×2 (07:44→12:07)
[2020-05-12] MEDS: Dexamethasone 4 MG Tab PO SCH (08:41)
[2020-05-12] MEDS: Finasteride 5 MG Tab PO SCH (08:42)
[2020-05-12] MEDS: Allopurinol 300 MG Tab PO SCH (08:42)
[2020-05-12] MEDS: Fluticasone/Umeclidin/Vilanter [Trelegy Ellipta 100-62.5-25 Mcg] INH SCH (08:42)
[2020-05-12] MEDS: Losartan 50 MG Tab PO SCH (08:42)
--- NOTE | 2020-05-12 08:49 | PCM.DCSUM1 ---
<Clarice Beth - Last Filed: 05/12/20 10:15> Discharge Summary - Hospital Course Free Text/Narrative:: Hospital course: 64-year-old male with significant past medical history of hypertension, hyperlipidemia type 2 diabetes obstructive sleep apnea and GERD presenting on May 07, 2020 with significant cough, shortness of breath at rest and exertion. Of note was tested positive with Covid on 05/01/2020 and was prescribed at outpatient setting azithromycin dexamethasone. However the previous week prior to admission states cough and shortness of breath had worsened and have also had developed a mild case of diarrhea. ED course. Chest x-ray revealed bilateral lung infiltrates typical for Covid pneumonia EKG was sinus rhythm. However patient was hypoxic to 88% on room air and improved to 94% on 2 L nasal cannula. Patient was admitted and started on remdesivir ; completed course of 4 days. Started on dexamethasone and convalescent plasma. Patient continued to improve throughout his stay. Oxygen saturations were maintained greater than 88%. Day of discharge ambulatory oxygen dipped down to 84% with improvement 1 to 2 L of nasal cannula oxygen. Patient requesting discharge. Patient was discharged with 4 additional days of dexamethasone and supplemental home O2 for the next following 6 weeks. Follow-up primary care was also set up. Discharge condition: Stable Discharge medications: Home medications plus dexamethasone x4 days Follow-up: PCP - Discharge Data Discharge Date: 05/12/20 Discharge Disposition: Home, Self-Care 01 Condition: Fair - Referral to Home Health Primary Care Physician: Eren Tong MD - Patient Summary/Data Consults: Consultations 05/07/20 12:30 Respiratory Care Assess and Treatment [CONS] Routine - Patient Instructions Diet: Low Sodium - Discharge Plan Prescriptions/Med Rec: Benzonatate 200 mg PO TID PRN 5 Days #15 capsule PRN Reason: Cough Home Medications: Home Meds Allopurinol [Zyloprim] 300 mg PO DAILY 07/14/15 [History] Aspirin [Adult Low Dose Aspirin EC] 1 tab PO DAILY 07/14/15 [History] Empagliflozin [Jardiance] 25 mg PO DAILY 07/14/15 [History] Finasteride 5 mg PO DAILY 07/14/15 [History] Gabapentin [Neurontin] 300 mg PO TID 07/14/15 [History] Losartan Potassium 1 tab PO DAILY 03/23/16 [History] Omeprazole 20 mg PO BIDAC 07/14/15 [History] Testosterone Cypionate [Depo-Testosterone] 200 mg IM WEEKLY 07/14/15 [History] Ubidecarenone [Co Q-10] 100 mg PO DAILY 07/14/15 [History] atorvaSTATin Calcium [Atorvastatin Calcium] 40 mg PO BEDTIME 07/14/15 [History] Acyclovir 400 mg PO BID 01/10/17 [History] Dulaglutide [Trulicity] 1.5 mg SUBCUT WEEKLY 01/10/17 [History] Fish Oil/DHA/EPA [Fish Oil 1,200 MG] 1,200 mg PO BID 01/10/17 [History] Multivitamin [Multivitamins] 1 tab PO DAILY 01/10/17 [History] Albuterol Sulfate [Albuterol Sulfate Hfa] 2 puff INH Q4H PRN 05/07/20 [History] Cholecalciferol (Vitamin D3) [Vitamin D3] 1,000 unit PO TID 05/07/20 [History] Fluticasone/Umeclidin/Vilanter [Trelegy Ellipta 100-62.5-25 MCG] 1 puff INH DAILY 05/07/20 [History] Montelukast [Singulair] 10 mg PO QPM 05/07/20 [History] Psyllium Seed (With Sugar) [Metamucil Fiber Wafer] 2 each PO DAILY 05/07/20 [History] Vitamin E 800 unit PO DAILY 05/07/20 [History] sitaGLIPtin Phos/Metformin HCl [Janumet 50-1,000 MG] 1 each PO BID 05/07/20 [History] Turmeric [Curcumin] 500 mg PO DAILY 05/11/20 [History] Turmeric/Turmeric Root Extract [Turmeric 500 mg Capsule] 500 mg PO DAILY 05/11/20 [History] dexAMETHasone [Decadron] 6 mg PO BID 05/11/20 [History] Acetaminophen [Tylenol] 650 mg PO Q4H PRN tablet 05/12/20 [Rx] Benzonatate 200 mg PO TID PRN 5 Days #15 capsule 05/12/20 [Rx] Codeine/guaiFENesin [Robitussin AC] 10 ml PO Q4H PRN #0 cup 05/12/20 [Rx] Losartan [Cozaar] 100 mg PO DAILY tablet 05/12/20 [Rx] allopurinoL [Zyloprim] 300 mg PO DAILY tablet 05/12/20 [Rx] dexAMETHasone [Dexamethasone] 6 mg PO DAILY tablet 05/12/20 [Rx] Oxygen Therapy Mode: Nasal Cannula Patient Handouts: COVID-19 Frequently Asked Questions, COVID-19, COVID-19: How to Protect Yourself and Others - [facility], Coronavirus Information 07/07/19, Benzonatate capsules, Prevent the Spread of COVID-19 if You Are Sick - [facility] Referrals: Eren Tong MD [Primary Care Provider] - 05/31/20 9:45 am - Discharge Summary/Plan Comment DC Time >30 min.: No - Patient Data Vitals - Most Recent: Last Vital Signs Temp 98.1 F 05/12/20 07:35 Pulse 70 05/12/20 07:35 Resp 18 05/12/20 07:35 BP 119/76 05/12/20 08:42 Pulse Ox 89 L 05/12/20 07:35 Weight - Most Recent: 99.79 kg I&O - Last 24 hours: Intake & Output 05/11/20 05/12/20 05/12/20 22:59 06:59 14:59 Intake Total 1400 1620 Output Total 1500 1800 Balance -100 -180 Lab Results - Last 24 hrs: Laboratory Results - last 24 hr 05/11/20 05/11/20 05/12/20 Range/Units 12:27 17:50 06:37 WBC (4.0-11.0) K/uL RBC (4.50-5.90) M/uL Hgb (13.0-17.0) g/dL Hct (38.0-50.0) % MCV (80.0-98.0) fL MCH (27.0-32.0) pg MCHC (31.0-37.0) g/dL RDW Std Deviation (28.0-62.0) fl RDW Coeff of [place] (11.0-15.0) % Plt Count (150-400) K/uL MPV (7.40-12.00) fL Neut % (Auto) (48.0-80.0) % Lymph % (Auto) (16.0-40.0) % [place] % (Auto) (0.0-15.0) % Eos % (Auto) (0.0-7.0) % Baso % (Auto) (0.0-1.5) % Neut # (Auto) (1.4-5.7) K/uL Lymph # (Auto) (0.6-2.4) K/uL [place] # (Auto) (0.0-0.8) K/uL Eos # (Auto) (0.0-0.7) K/uL Baso # (Auto) (0.0-0.1) K/uL Nucleated RBC % /100WBC Nucleated RBCs # K/uL POC Glucose 365 H 395 H 260 H (60-110) mg/dL 05/12/20 Range/Units 06:44 WBC 11.77 H (4.0-11.0) K/uL RBC 5.64 (4.50-5.90) M/uL Hgb 15.0 (13.0-17.0) g/dL Hct 45.7 (38.0-50.0) % MCV 81.0 (80.0-98.0) fL MCH 26.6 L (27.0-32.0) pg MCHC 32.8 (31.0-37.0) g/dL RDW Std Deviation 47.2 (28.0-62.0) fl RDW Coeff of [place] 16 H (11.0-15.0) % Plt Count 253 (150-400) K/uL MPV 9.70 (7.40-12.00) fL Neut % (Auto) 80.3 H (48.0-80.0) % Lymph % (Auto) 9.3 L (16.0-40.0) % [place] % (Auto) 8.8 (0.0-15.0) % Eos % (Auto) 1.5 (0.0-7.0) % Baso % (Auto) 0.1 (0.0-1.5) % Neut # (Auto) 9.5 H (1.4-5.7) K/uL Lymph # (Auto) 1.1 (0.6-2.4) K/uL [place] # (Auto) 1.0 H (0.0-0.8) K/uL Eos # (Auto) 0.2 (0.0-0.7) K/uL Baso # (Auto) 0.0 (0.0-0.1) K/uL Nucleated RBC % 0.0 /100WBC Nucleated RBCs # 0 K/uL POC Glucose (60-110) mg/dL Med Orders - Current: Current Medications Acetaminophen (Tylenol) 650 mg PO Q4H PRN PRN Reason: Pain (Mild 1-3)/fever Last Admin: 05/09/20 15:58 Dose: 650 mg Documented by: Albuterol/Ipratropium (Combivent Respimat) 0 gm INH QID [facility] Last Admin: 05/12/20 06:08 Dose: 1 puff Documented by: Allopurinol (Zyloprim) 300 mg PO DAILY [facility] Last Admin: 05/12/20 08:42 Dose: 300 mg Documented by: Atorvastatin Calcium (Lipitor) 40 mg PO BEDTIME [facility] Last Admin: 05/11/20 20:17 Dose: 40 mg Documented by: Benzonatate (Tessalon Perles) 200 mg PO TID PRN PRN Reason: Cough Last Admin: 05/10/20 04:16 Dose: 200 mg Documented by: Dexamethasone (Dexamethasone) 6 mg PO DAILY [facility] Stop: 05/16/20 09:01 Last Admin: 05/12/20 08:41 Dose: 6 mg Documented by: Dextrose/Water (Dextrose 50% In Water) 50 ml IV ASDIRECTED PRN PRN Reason: Hypoglycemia Docusate Sodium (Colace) 100 mg PO BID PRN PRN Reason: Constipation Enoxaparin Sodium (Lovenox) 40 mg SUBCUT Q24H [facility] Last Admin: 05/11/20 12:18 Dose: 40 mg Documented by: Finasteride (Proscar) 5 mg PO DAILY [facility] Last Admin: 05/12/20 08:42 Dose: 5 mg Documented by: Glucagon (Glucagen) 1 mg IM ASDIRECTED PRN PRN Reason: Hypoglycemia Guaifenesin/Codeine Phosphate (Robitussin Ac) 10 ml PO Q4H PRN PRN Reason: Cough Last Admin: 05/12/20 06:41 Dose: 10 ml Documented by: Insulin Aspart (Novolog) 0 unit SUBCUT TIDAC [facility]; Protocol Last Admin: 05/12/20 07:44 Dose: 9 unit Documented by: Losartan Potassium (Cozaar) 100 mg PO DAILY [facility] Last Admin: 05/12/20 08:42 Dose: 100 mg Documented by: Omeprazole (Omeprazole) 20 mg PO ACBREAKFASTANDBED [facility] Last Admin: 05/12/20 06:41 Dose: 20 mg Documented by: Ondansetron HCl (Zofran) 4 mg IVPUSH Q4H PRN PRN Reason: Nausea Fluticasone/Umeclidin/Vilanter [ Trelegy Ellipta 100- 62.5-25 Mcg] 0 each INH DAILY [facility] Last Admin: 05/12/20 08:42 Dose: 1 each Documented by: Sodium Chloride (Saline Flush) 2.5 ml FLUSH ASDIRECTED PRN PRN Reason: Keep Vein Open Discontinued Medications Allopurinol (Zyloprim) 300 mg PO DAILY [facility] Last Admin: 05/11/20 11:17 Dose: Not Given Documented by: Guaifenesin/Codeine Phosphate (Robitussin Ac) 5 ml PO Q6H PRN PRN Reason: Cough Last Admin: 05/08/20 23:03 Dose: 5 ml Documented by: Guaifenesin/Codeine Phosphate (Robitussin Ac) 5 ml PO Q4H PRN PRN Reason: Cough Last Admin: 05/10/20 08:55 Dose: 5 ml Documented by: Remdesivir 200 mg/ Sodium (Chloride) 250 mls @ 250 mls/hr IV ONETIME ONE Stop: 05/07/20 12:59 Last Admin: 05/07/20 12:11 Dose: 250 mls/hr Documented by: Pantoprazole Sodium 40 mg/ (Sodium Chloride) 10 mls @ 300 mls/hr IV Q24H [facility] Last Admin: 05/07/20 14:45 Dose: 300 mls/hr Documented by: Remdesivir 100 mg/ Sodium (Chloride) 100 mls @ 100 mls/hr IV Q24H [facility] Stop: 05/11/20 12:59 Last Admin: 05/11/20 12:10 Dose: 100 mls/hr Documented by: Iopamidol (Isovue Multipack-370 (76%)) 100 ml IVPUSH ONETIME ONE Stop: 05/07/20 15:40 Last Admin: 05/07/20 15:40 Dose: 100 ml Documented by: Losartan Potassium (Cozaar) 100 mg PO DAILY [facility] Last Admin: 05/11/20 11:16 Dose: Not Given Documented by: Fluticasone/Umeclidin/Vilanter [ Trelegy Ellipta 100- 62.5-25 Mcg] 1 each INH DAILY [facility] Last Admin: 05/09/20 09:10 Dose: Not Given Documented by: Sodium Chloride (Saline Flush) 10 ml FLUSH ASDIRECTED PRN PRN Reason: Keep Vein Open Last Admin: 05/07/20 11:21 Dose: 10 ml Documented by: Sodium Chloride (Saline Flush) 2.5 ml FLUSH ASDIRECTED PRN PRN Reason: Keep Vein Open Last Admin: 05/07/20 11:21 Dose: 2.5 ml Documented by: <Roxanna Giraldo - Last Filed: 05/14/20 13:55> Discharge Summary - Hospital Course Free Text/Narrative:: I have seen and evaluated the patient and agree with the residents note unless specified in my note - Referral to Home Health Primary Care Physician: Eren Tong MD - Discharge Diagnosis/Problem(s) (1) Acute respiratory failure with hypoxia SNOMED Code(s): 74494936, 362743502 ICD Code: J96.01 - ACUTE RESPIRATORY FAILURE WITH HYPOXIA Status: Acute (2) COVID-19 SNOMED Code(s): 472794225 ICD Code: U07.1 - COVID-19 Status: Acute (3) COPD (chronic obstructive pulmonary disease) SNOMED Code(s): 96144340 ICD Code: J44.9 - CHRONIC OBSTRUCTIVE PULMONARY DISEASE, UNSPECIFIED Status: Chronic (4) DM type 2 (diabetes mellitus, type 2) SNOMED Code(s): 32528017 ICD Code: E11.9 - TYPE 2 DIABETES MELLITUS WITHOUT COMPLICATIONS Status: Chronic Qualifiers: Diabetes mellitus correction insulin use: without ocean transportation intermediary use Diabetes mellitus complication status: without complication Qualified Code(s): E11.9 - Type 2 diabetes mellitus without complications (5) GERD (gastroesophageal reflux disease) SNOMED Code(s): 520741239 ICD Code: K21.9 - GASTRO-ESOPHAGEAL REFLUX DISEASE WITHOUT ESOPHAGITIS Status: Chronic (6) HLD (hyperlipidemia) SNOMED Code(s): 20853444 ICD Code: E78.5 - HYPERLIPIDEMIA, UNSPECIFIED Status: Chronic (7) HTN (hypertension) SNOMED Code(s): 62308287 ICD Code: I10 - ESSENTIAL (PRIMARY) HYPERTENSION Status: Chronic Qualifiers: Hypertension type: essential hypertension Qualified Code(s): I10 - Esse ntial (primary) hypertension - Patient Summary/Data Consults: Consultations 05/07/20 12:30 Respiratory Care Assess and Treatment [CONS] Routine - Patient Data Vitals - Most Recent: Last Vital Signs Temp 36.7 C 05/12/20 07:35 Pulse 70 05/12/20 07:35 Resp 18 05/12/20 07:35 BP 119/76 05/12/20 08:42 Pulse Ox 89 L 05/12/20 07:35 Med Orders - Current: Current Medications Discontinued Medications Acetaminophen (Tylenol) 650 mg PO Q4H PRN PRN Reason: Pain (Mild 1-3)/fever Last Admin: 05/09/20 15:58 Dose: 650 mg Documented by: Albuterol/Ipratropium (Combivent Respimat) 0 gm INH QID [facility] Last Admin: 05/12/20 06:08 Dose: 1 puff Documented by: Allopurinol (Zyloprim) 300 mg PO DAILY [facility] Last Admin: 05/11/20 11:17 Dose: Not Given Documented by: Allopurinol (Zyloprim) 300 mg PO DAILY [facility] Last Admin: 05/12/20 08:42 Dose: 300 mg Documented by: Atorvastatin Calcium (Lipitor) 40 mg PO BEDTIME [facility] Last Admin: 05/11/20 20:17 Dose: 40 mg Documented by: Benzonatate (Tessalon Perles) 200 mg PO TID PRN PRN Reason: Cough Last Admin: 05/10/20 04:16 Dose: 200 mg Documented by: Dexamethasone (Dexamethasone) 6 mg PO DAILY [facility] Stop: 05/16/20 09:01 Last Admin: 05/12/20 08:41 Dose: 6 mg Documented by: Dextrose/Water (Dextrose 50% In Water) 50 ml IV ASDIRECTED PRN PRN Reason: Hypoglycemia Docusate Sodium (Colace) 100 mg PO BID PRN PRN Reason: Constipation Enoxaparin Sodium (Lovenox) 40 mg SUBCUT Q24H [facility] Last Admin: 05/11/20 12:18 Dose: 40 mg Documented by: Finasteride (Proscar) 5 mg PO DAILY [facility] Last Admin: 05/12/20 08:42 Dose: 5 mg Documented by: Glucagon (Glucagen) 1 mg IM ASDIRECTED PRN PRN Reason: Hypoglycemia Guaifenesin/Codeine Phosphate (Robitussin Ac) 5 ml PO Q6H PRN PRN Reason: Cough Last Admin: 05/08/20 23:03 Dose: 5 ml Documented by: Guaifenesin/Codeine Phosphate (Robitussin Ac) 5 ml PO Q4H PRN PRN Reason: Cough Last Admin: 05/10/20 08:55 Dose: 5 ml Documented by: Guaifenesin/Codeine Phosphate (Robitussin Ac) 10 ml PO Q4H PRN PRN Reason: Cough Last Admin: 05/12/20 06:41 Dose: 10 ml Documented by: Remdesivir 200 mg/ Sodium (Chloride) 250 mls @ 250 mls/hr IV ONETIME ONE Stop: 05/07/20 12:59 Last Admin: 05/07/20 12:11 Dose: 250 mls/hr Documented by: Pantoprazole Sodium 40 mg/ (Sodium Chloride) 10 mls @ 300 mls/hr IV Q24H [facility] Last Admin: 05/07/20 14:45 Dose: 300 mls/hr Documented by: Remdesivir 100 mg/ Sodium (Chloride) 100 mls @ 100 mls/hr IV Q24H [facility] Stop: 05/11/20 12:59 Last Admin: 05/11/20 12:10 Dose: 100 mls/hr Documented by: Insulin Aspart (Novolog) 0 unit SUBCUT TIDAC [facility]; Protocol Last Admin: 05/12/20 12:07 Dose: Not Given Documented by: Iopamidol (Isovue Multipack-370 (76%)) 100 ml IVPUSH ONETIME ONE Stop: 05/07/20 15:40 Last Admin: 05/07/20 15:40 Dose: 100 ml Documented by: Losartan Potassium (Cozaar) 100 mg PO DAILY [facility] Last Admin: 05/11/20 11:16 Dose: Not Given Documented by: Losartan Potassium (Cozaar) 100 mg PO DAILY [facility] Last Admin: 05/12/20 08:42 Dose: 100 mg Documented by: Omeprazole (Omeprazole) 20 mg PO ACBREAKFASTANDBED [facility] Last Admin: 05/12/20 06:41 Dose: 20 mg Documented by: Ondansetron HCl (Zofran) 4 mg IVPUSH Q4H PRN PRN Reason: Nausea Fluticasone/Umeclidin/Vilanter [ Trelegy Ellipta 100- 62.5-25 Mcg] 1 each INH DAILY [facility] Last Admin: 05/09/20 09:10 Dose: Not Given Documented by: Fluticasone/Umeclidin/Vilanter [ Trelegy Ellipta 100- 62.5-25 Mcg] 0 each INH DAILY [facility] Last Admin: 05/12/20 08:42 Dose: 1 each Documented by: Sodium Chloride (Saline Flush) 10 ml FLUSH ASDIRECTED PRN PRN Reason: Keep Vein Open Last Admin: 05/07/20 11:21 Dose: 10 ml Documented by: Sodium Chloride (Saline Flush) 2.5 ml FLUSH ASDIRECTED PRN PRN Reason: Keep Vein Open Last Admin: 05/07/20 11:21 Dose: 2.5 ml Documented by: Sodium Chloride (Saline Flush) 2.5 ml FLUSH ASDIRECTED PRN PRN Reason: Keep Vein Open
[2020-05-12 09:50] LABS: BLOOD UREA NITROGEN,BUN 25 mg/dL (7.0-18.0); CARBON DIOXIDE,CO2 26.4 mmol/L (21.0-32.0); CHLORIDE,CL 100 mmol/L (98-107); GLUCOSE RANDOM 285 mg/dL (74-106); SODIUM,NA 135 mmol/L (136-148)
== END 2020-05-12 11:30 | disposition home or self-care (01) | DRG 137 ==
LOC: MW.ED 09:56 → MW.MS 11:36
PROVIDERS: ADMIT Internal Medicine; ATTEND Internal Medicine
PROC: XW033E5 Introduction of Remdesivir Anti-infective into Peripheral Vein, Percutaneous Approach, New Technology Group 5 (ICD-10-PCS; principal; 2020-05-07)
DX: U07.1 COVID-19 (principal); J12.82 Pneumonia due to coronavirus disease 2019; J96.01 Acute respiratory failure with hypoxia; J44.0 Chronic obstructive pulmonary disease with (acute) lower respiratory infection; E78.5 Hyperlipidemia, unspecified; G47.33 Obstructive sleep apnea (adult) (pediatric); K22.70 Barrett's esophagus without dysplasia; K21.9 Gastro-esophageal reflux disease without esophagitis; E78.00 Pure hypercholesterolemia, unspecified; I10 Essential (primary) hypertension; N40.0 Benign prostatic hyperplasia without lower urinary tract symptoms; M54.9 Dorsalgia, unspecified; G89.29 Other chronic pain; M10.9 Gout, unspecified; M54.2 Cervicalgia; E11.9 Type 2 diabetes mellitus without complications; E66.9 Obesity, unspecified; Z68.27 Body mass index [BMI] 27.0-27.9, adult; Z90.49 Acquired absence of other specified parts of digestive tract; Z88.8 Allergy status to other drugs, medicaments and biological substances; Z79.82 Long term (current) use of aspirin; Z79.899 Other long term (current) drug therapy; Z87.891 Personal history of nicotine dependence
CPT/HCPCS: 36415; 71045; 71045-26; 71275; 71275-26; 80053; 82248; 82962; 83735; 84484; 85025; 93005; 93010; 94667; 96365; 99222; 99232; 99238; 99285; 99285-25; A9270-GY; C9113; J1650; J1815-GY; J7050; J8540; Q9967; U0002